=== PATIENT | male | born 1980 | race Two or more races ===

== ENCOUNTER 2017-01-01 23:03 | Inpatient (IN) | payer OTHER ==
[2017-01-02] MEDS ORDERED: FAMOTIDINE 20 MG/50 ML IVPB 20 MG in PREMIX 50 IVPB ONE (00:13)
[2017-01-02] MEDS ORDERED: ONDANSETRON 4 MG/2 ML VIAL IVPUSH STA (00:13)
--- NOTE | 2017-01-02 00:13 | PDOC ---
History of Present Illness - General History Source: Patient Exam Limitations: No Limitations - History of Present Illness Initial Comments: 01/02/17 00:22 The patient is a 36 year old male with significant past medical history of acid reflux and gastric ulcer who presents to the ED with 1 day of diffuse abdominal pain. Patient reports he woke up yesterday morning with diffuse abdominal pain and associated nausea, nonbloody vomiting, and nonbloody/nonbilious diarrhea. He states going to bed in his usual state of health the night prior. He also has complaints of decreased appetite. Patient reports a h/o of gastric ulcer, which he only followed up once and has not followed up since. The patient denies fever, chills, cough, SOB, chest pain, and palpitations. Allergies: NKDA Social History: Current smoker (2 cigarettes daily). No alcohol or drug use reported. Past Surgical History: Appendectomy PCP: None reported <Frances Dewey - Last Filed: 01/02/17 05:44> - General History Source: Patient <VjCarlos A woods - Last Filed: 01/02/17 19:24> - General Chief Complaint: Nausea/Vomiting Stated Complaint: N/V/D Time Seen by Provider: 01/02/17 00:12 Past History <Frances Dewey - Last Filed: 01/02/17 05:44> - Past Medical History GI Disorders: Yes (gastric ulcers) - Surgical History Appendectomy: Yes - Immunization History Immunization Up to Date: Yes - Psycho/Social/Smoking Cessation Hx Anxiety: No Suicidal Ideation: No Smoking History: Never smoked Have you smoked in the past 12 months: No Number of Cigarettes Smoked Daily: 1 If you are a former smoker, when did you quit?: 3 wks Information on smoking cessation initiated: No Hx Alcohol Use: No Drug/Substance Use Hx: No Substance Use Type: None <Carlos A Ireland - Last Filed: 01/02/17 19:24> - Past Medical History Allergies/Adverse Reactions: Allergies Allergy/AdvReac Type Severity Reaction Status Date / Time ibuprofen [From Motrin] AdvReac Vomiting Verified 01/02/17 02:59 Home Medications: Ambulatory Orders NK [No Known Home Medication] 01/02/17 Review of Systems - Review of Systems Able to Perform ROS?: Yes Comments:: 01/02/17 00:22 CONSTITUTIONAL: +decreased appetite Absent: fever, no chills, no fatigue EYES: Absent: visual changes ENT: Absent: ear pain, no sore throat CARDIOVASCULAR: Absent: chest pain, no palpitations RESPIRATORY: Absent: cough, no SOB GI: +abdominal pain, nausea, vomiting, and diarrhea Absent: melena, no constipation GENITOURINARY: Absent: dysuria, no frequency, no hematuria MUSKULOSKELETAL: Absent: back pain, no arthralgia, no myalgia SKIN: Absent: rash NEURO: Absent: headache <Frances Dewey - Last Filed: 01/02/17 05:44> *Physical Exam - Vital Signs Last Vital Signs Temp Pulse Resp BP Pulse Ox 98.5 F 79 18 131/93 97 01/01/17 23:07 01/01/17 23:07 01/01/17 23:07 01/01/17 23:07 01/01/17 23:07 - Physical Exam Comments: 01/02/17 00:22 GENERAL: Well-appearing, well-nourished. No apparent distress. HEENT: Normocephalic, atraumatic. PERRL, EOM intact. CARDIOVASCULAR: Normal S1, S2. Regular rate and rhythm. PULMONARY: Clear to auscultation bilaterally. ABDOMEN: Soft, non-distended, non-tender. No rebound or guarding. EXTREMITIES: Normal ROM in all four extremities. No gross deformities. SKIN: Warm, dry. No rash NEUROLOGICAL: No focal neurological deficits. <Frances Dewey - Last Filed: 01/02/17 05:44> - Vital Signs Last Vital Signs Temp Pulse Resp BP Pulse Ox 98.5 F 79 18 131/93 97 01/01/17 23:07 01/01/17 23:07 01/01/17 23:07 01/01/17 23:07 01/01/17 23:07 <Carlos A Ireland - Last Filed: 01/02/17 19:24> Heart Score/ECG Review - ECG Impressions Comment:: 01/02/17 05:44 NSR @65bpm Normal ECG <Frances Dewey - Last Filed: 01/02/17 05:44> ED Treatment Course - LABORATORY CBC & Chemistry Diagram: 01/02/17 02:42 01/02/17 02:42 - RADIOLOGY Radiograph Interpretation: 01/02/17 04:54 EXAM: CT ABDOMEN AND PELVIS WITH CONTRAST Reviewed by Imaging transportation attendant: Thickened descending duodenum with adjacent hazy fat, probably duodenitis. Irregular contours of proximal duodenum may represent normal folds, although a small ulcer is not excluded. No bowel obstruction, colitis, free fluid or free air. Normal appendix. Unremarkable pancreas, kidneys and gallbladder. <Frances Dewey - Last Filed: 01/02/17 05:44> - LABORATORY CBC & Chemistry Diagram: 01/02/17 02:42 01/02/17 02:42 <Carlos A Ireland - Last Filed: 01/02/17 19:24> Medical Decision Making - Medical Decision Making 01/02/17 19:24 Dr. Ireland: The scribe's documentation has been prepared under my direction and personally reviewed by me in its entirery. I confirm that the note above accurately reflects all work, treatment, procedures, and medical decision making performed by me. <Carlos A Ireland - Last Filed: 01/02/17 19:24> *DC/Admit/Observation/Transfer - Attestations Scribe Attestion: 01/02/17 00:22 Documentation prepared by Frances Dewey, acting as medical record transcriber for Carlos A Ireland MD <Frances Dewey - Last Filed: 01/02/17 05:44> - Discharge Dispostion Admit: Yes <Carlos A Ireland - Last Filed: 01/02/17 19:24> Diagnosis at time of Disposition: Epigastric abdominal pain, GERD (gastroesophageal reflux disease), Elevated lipase, Duodenitis
[2017-01-02] MEDS ORDERED: SODIUM CHLORIDE 1,000 ML IV STA (00:14)
[2017-01-02] MEDS ORDERED: FAMOTIDINE 20 MG/50 ML IVPB 50 ML IVPB ONE (02:48)
[2017-01-02] MEDS ORDERED: ONDANSETRON 4 MG/2 ML VIAL ONE (02:48)
[2017-01-02 03:08] LABS: BASOPHIL 0.9 % (0-2.0); EOSINOPHIL 3.7 % (0-4.5); MCH 28.5 pg (25.7-33.7); MEAN CELL VOLUME 83.9 fl (80-96); MEAN PLT VOLUME 7.8 fl (7.5-11.1); NEUTROPHILS 57.6 % (42.8-82.8); PLATELET COUNT 357 K/MM3 (134-434); WHITE BLOOD COUNT 6.8 K/mm3 (4.0-10.0)
[2017-01-02 03:30] LABS: ALBUMIN 3.7 g/dl (3.4-5.0); ALK PHOS 85 U/L (45-117); AMYLASE 141 U/L (25-115); ANION GAP 9 (8-16); BILIRUBIN,TOTAL 0.7 mg/dL (0.2-1.0); CALCIUM 9.2 mg/dL (8.5-10.1); CO2 29 mmol/L (21-32); CREATININE 0.8 mg/dL (0.7-1.3); GLUCOSE,RANDOM 98 mg/dL (74-106); SGOT/AST 19 U/L (15-37); SGPT/ALT 24 U/L (12-78); TOT PROT 6.8 g/dl (6.4-8.2)
[2017-01-02] MEDS ORDERED: DEXTROSE 5%-0.45% SALINE 1,000 ML IV SCH ×2 (05:00→08:22)
--- NOTE | 2017-01-02 05:06 | HP ---
CHIEF COMPLAINT: Epigastric pain, nausea, vomiting, diarrhea PCP: Not on staff HISTORY OF PRESENT ILLNESS: This is a 36 y/o male with a past medical history of GERD, Gastric Ulcer. Who presents to the emergency department with epigastric pain, bilious vomiting, and diarrhea x 1 day. Patient reports having 3-4 episodes of vomiting with squeezing type pain to his epigastrium. Patient denies eating spicy, greasy or fried. Patient reports subjective fever without chills or cough. Patient denies SOB, CP, hemotchezia, melena, dysuria. ER course was notable for: (1) Lipase 755 (2) Amylase 141 (3) CTAP: Thickened descending duodenum, adjacent hazy fat, probably duodenitis Recent Travel: None PAST MEDICAL HISTORY: GERD Gastric Ulcer PAST SURGICAL HISTORY: Appendectomy Social History: Smoking: None Alcohol: None Drugs: NOne Lives with family, employed Family History: DM, HTN Allergies ibuprofen [From Motrin] Adverse Reaction (Verified 01/02/17 02:59) Vomiting HOME MEDICATIONS: Home Medications Medication Instructions Recorded NK [No Known Home Medication] 01/02/17 REVIEW OF SYSTEMS CONSTITUTIONAL: fever Absent: chills, diaphoresis, generalized weakness, malaise, loss of appetite, weight change HEENT: Absent: rhinorrhea, nasal congestion, throat pain, throat swelling, difficulty swallowing, mouth swelling, ear pain, eye pain, visual changes CARDIOVASCULAR: Absent: chest pain, syncope, palpitations, irregular heart rate, lightheadedness , peripheral edema RESPIRATORY: Absent: cough, shortness of breath, dyspnea with exertion, orthopnea, wheezing, stridor, hemoptysis GASTROINTESTINAL: abdominal pain, nausea, vomiting, diarrhea Absent: abdominal distension, constipation, melena, hematochezia GENITOURINARY: Absent: dysuria, frequency, urgency, hesitancy, hematuria, flank pain, genital pain MUSCULOSKELETAL: Absent: myalgia, arthralgia, joint swelling, back pain, neck pain SKIN: Absent: rash, itching, pallor HEMATOLOGIC/IMMUNOLOGIC: Absent: easy bleeding, easy bruising, lymphadenopathy, frequent infections ENDOCRINE: Absent: unexplained weight gain, unexplained weight loss, heat intolerance, cold intolerance NEUROLOGIC: Absent: headache, focal weakness or paresthesias, dizziness, unsteady gait, seizure, mental status changes, bladder or bowel incontinence PSYCHIATRIC: Absent: anxiety, depression, suicidal or homicidal ideation, hallucinations. PHYSICAL EXAMINATION Vital Signs - 24 hr 01/01/17 01/02/17 23:07 04:43 Temperature 98.5 F 97.9 F Pulse Rate 79 Pulse Rate [ 77 Right] Respiratory 18 16 Rate Blood Pressure 131/93 Blood Pressure 117/77 [Left Arm] O2 Sat by Pulse 97 100 Oximetry (%) GENERAL: Awake, alert, and fully oriented, in no acute distress. HEAD: Normal with no signs of trauma. EYES: Pupils equal, round and reactive to light, extraocular movements intact, sclera anicteric, conjunctiva clear. No lid lag. EARS, NOSE, THROAT: Ears normal, nares patent, oropharynx clear without exudates. Moist mucous membranes. NECK: Normal range of motion, supple without lymphadenopathy, JVD, or masses. LUNGS: Breath sounds equal, clear to auscultation bilaterally. No wheezes, and no crackles. No accessory muscle use. HEART: Regular rate and rhythm, normal S1 and S2 without murmur, rub or gallop. ABDOMEN: Soft, obese, not distended, no guarding, no rebound, no masses. No hepatomegaly or splenomegaly. tender to epigastrium, hyperactive bowel sounds MUSCULOSKELETAL: Normal range of motion at all joints. No bony deformities or tenderness. No CVA tenderness. UPPER EXTREMITIES: 2+ pulses, warm, well-perfused. No cyanosis. No clubbing. No peripheral edema. LOWER EXTREMITIES: 2+ pulses, warm, well-perfused. No calf tenderness. No peripheral edema. NEUROLOGICAL: Cranial nerves II-XII intact. Normal speech. Normal gait. PSYCHIATRIC: Cooperative. Good eye contact. Appropriate mood and affect. SKIN: Warm, dry, normal turgor, no rashes or lesions noted, normal capillary refill. Laboratory Results - last 24 hr 01/02/17 01/02/17 02:42 02:42 WBC 6.8 RBC 5.18 Hgb 14.8 Hct 43.5 MCV 83.9 MCHC 34.0 RDW 13.0 Plt Count 357 MPV 7.8 Neutrophils % 57.6 Lymphocytes % 30.3 Monocytes % 7.5 Eosinophils % 3.7 Basophils % 0.9 Sodium 142 Potassium 4.4 Chloride 104 Carbon Dioxide 29 Anion Gap 9 BUN 17 Creatinine 0.8 Creat Clearance w eGFR > 60 Random Glucose 98 Calcium 9.2 Magnesium 2.0 Total Bilirubin 0.7 D AST 19 ALT 24 Alkaline Phosphatase 85 Total Protein 6.8 Albumin 3.7 Total Amylase 141 H Lipase 755 H - RADIOLOGY Radiograph Interpretation: 01/02/17 04:54 EXAM: CT ABDOMEN AND PELVIS WITH CONTRAST Reviewed by Imaging trousseau consultant: Thickened descending duodenum with adjacent hazy fat, probably duodenitis. Irregular contours of proximal duodenum may represent normal folds, although a small ulcer is not excluded. No bowel obstruction, colitis, free fluid or free air. Normal appendix. Unremarkable pancreas, kidneys and gallbladder. ASSESSMENT/PLAN: This is a 36 y/o male with a PMHX of: GERD, Gastric Ulcer. Who presents to the ED with epigastric pain, N/V/D. Placed in Observation for Undifferentiated Abdominal Pain for further evaluation of their emergent condition. Plan: 1. Epigastric Pain/ Nausea/Vomiting/Diarrhea - Hx GERD, Gastric Ulcer - CTAP- see above - IVF, Pepcid, Zofran given in ED - Continue IVF, Pepcid - NPO- advance to clear as tolerated - Lipase and Amylase elevated likely secondary to inflammatory response - Monitor CBC, BMP - Replete lytes as indicated - Monitor vitals - Consider GI Consult if condition worsens - Stool Occult in am 2. GERD - Continue H2 Elijah - IVF 3. Gastric Ulcer - f/u outpatient with GI upon d/c 4. FEN - D51/2 NS@100ml/hr - Replete lytes prn - NPO 5. DVT Prophylaxis - OOB - SCDs Code Status: Full Code Problem List - Problem (1) Epigastric abdominal pain Code(s): R10.13 - EPIGASTRIC PAIN (2) Duodenitis Code(s): K29.80 - DUODENITIS WITHOUT BLEEDING (3) Elevated lipase Code(s): R74.8 - ABNORMAL LEVELS OF OTHER SERUM ENZYMES (4) GERD (gastroesophageal reflux disease) Code(s): K21.9 - GASTRO-ESOPHAGEAL REFLUX DISEASE WITHOUT ESOPHAGITIS (5) DVT prophylaxis Code(s): YCD7319 - Visit type - Emergency Visit Emergency Visit: Yes ED Registration Date: 01/01/17 Care time: The patient presented to the Emergency Department on the above date and was hospitalized for further evaluation of their emergent condition. - New Patient This patient is new to me today: Yes Date on this admission: 01/02/17 - Critical Care Critical Care patient: No
[2017-01-02] MEDS ORDERED: ONDANSETRON 4 MG/2 ML VIAL IVPUSH PRN (05:15)
--- NOTE | 2017-01-02 08:31 | PN ---
Physical Exam: SUBJECTIVE: Patient seen and examined at bedside. Feels better, only mild epigastric pain which is his baseline. No further n/v/d. Wants to go home. Sister encouraging him to stay. OBJECTIVE: Vital Signs Period Temp Pulse Resp BP Sys/Elaine Pulse Ox Last 24 Hr 97.6 F 70 18 105/83 96 GENERAL: The patient is awake, alert, and fully oriented, in no acute distress. HEAD: Normal with no signs of trauma. EYES: PERRL, extraocular movements intact, sclera anicteric, conjunctiva clear. No ptosis. LUNGS: Breath sounds equal, clear to auscultation bilaterally, no wheezes, no crackles, no accessory muscle use. HEART: Regular rate and rhythm, S1, S2 without murmur, rub or gallop. ABDOMEN: Soft, nontender, nondistended, normoactive bowel sounds, no guarding, no rebound; benign exam NEUROLOGICAL: Cranial nerves II through XII grossly intact. Normal speech, gait not observed. Current Medications Generic Name Dose Route Start Last Admin Trade Name Freq PRN Reason Stop Dose Admin Enoxaparin Sodium 40 mg 01/03/17 10:00 Lovenox - SQ DAILY GWEN Famotidine/Sodium Chloride 50 mls @ 100 mls/hr 01/02/17 22:00 Pepcid 20 Mg Premixed Ivpb - IVPB BID GWEN Sodium Chloride 1,000 mls @ 200 mls/hr 01/02/17 15:15 Normal Saline - IV ASDIR GWEN Pantoprazole Sodium 40 mg/ 100 mls @ 200 mls/hr 01/02/17 22:00 Sodium Chloride IVPB BID GWEN Ondansetron HCl 4 mg 01/02/17 05:15 Zofran Injection IVPUSH Q6H PRN NAUSEA AND/OR VOMITING Imaging 01/02/17 CTAP: thickened descending duodenum with adjacent haziness of fat at level of pancreatic head; small ulcer cannot be ruled out 01/20/16 US gallbladder: negative for acute pathology; mild diffuse fatty liver ASSESSMENT/PLAN 36 year-old male with a PMH of GERD and gastric ulcer, admitted for duodentitis and pancreatitis, possible new duodenal ulcer Pancreatitis --imaging findings suggestive of pancreatic inflammation, acute onset of severe pain, n/v, and elevated lipase --Paia's criteria 0-1 --repeat lipase in am to see if trending up; check crp, LDH --IV fluids --NPO --GI consult for Dr. Bates who has seen patient in past in office Duodenitis r/o duodenal ulcer GERD --Protonix IVPB BID F/E/N Fluids: NS @ 200mL/hr Electrolytes: replete as indicated Nutrition: NPO DVT prophylaxis: lovenox, oob, ambulation Dispo: continues to require inpatient care. Full Code. Visit type - Emergency Visit Emergency Visit: Yes ED Registration Date: 01/02/17 Care time: The patient presented to the Emergency Department on the above date and was hospitalized for further evaluation of their emergent condition. - New Patient This patient is new to me today: Yes Date on this admission: 01/02/17 - Critical Care Critical Care patient: No
--- NOTE | 2017-01-02 11:52 | EKG ---
Test Reason : Blood Pressure : / mmHG Vent. Rate : 065 BPM Atrial Rate : 065 BPM P-R Int : 186 ms QRS Dur : 080 ms QT Int : 378 ms P-R-T Axes : 051 012 033 degrees QTc Int : 393 ms NORMAL SINUS RHYTHM NORMAL ECG NO PREVIOUS ECGS AVAILABLE Confirmed by JANA MATHIS MD ([id number]) on 01/02/2017 11:52:02 AM Referred By: Confirmed By:JANA MATHIS MD
--- NOTE | 2017-01-02 14:38 | HOSP ---
Subjective - Review of Symptoms Events since last encounter: Determined patient has been seen in past by Dr. Bates. Called consult into his office at 2:40pm.. Called and spoke to 's office and cancelled the previous consult order for his group. Physical Examination Vital Signs: Vital Signs Temperature 98.1 F 01/02/17 11:00 Pulse Rate 68 01/02/17 11:00 Respiratory Rate 19 01/02/17 11:00 Blood Pressure 114/62 01/02/17 11:00 O2 Sat by Pulse Oximetry (%) 96 01/02/17 11:00
[2017-01-02 17:58] VITALS: BMI 32.1
[2017-01-02] MEDS: SODIUM CHLORIDE 1,000 ML IV SCH (18:27)
--- NOTE | 2017-01-02 19:46 | CON.GI ---
Consult Consult Specialty:: GI Referred by:: Dr Mariscal Reason for Consultation:: Abdominal pain - History of Present Illness Chief Complaint: N/V/diarrhea History of Present Illness: Patient describes a 1 day h/o N/V/D admitted and found to have mild elevated lipase and a CT demonstrating duodenitis with haziness in the surrounding fat at the level of the pancreatic head. I have seen this patient in the past and did EGD recently which showed duodenitis. Patient was supposed to follow-up but failed to show. - History Source History Provided By: Patient, Family Member, Medical Record Limitations to Obtaining History: No Limitations - Past Medical History Gastrointestinal: Yes: Gastritis - Alcohol/Substance Use Hx Alcohol Use: No - Smoking History Smoking history: Never smoked Have you smoked in the past 12 months: No Aproximately how many cigarettes per day: 1 If you are a former smoker, when did you quit?: 3 wks Home Medications - Allergies Allergies/Adverse Reactions: Allergies Allergy/AdvReac Type Severity Reaction Status Date / Time ibuprofen [From Motrin] AdvReac Vomiting Verified 01/02/17 02:59 - Home Medications Home Medications: Ambulatory Orders NK [No Known Home Medication] 01/02/17 Physical Exam-GI Vital Signs: Vital Signs Temperature 98.3 F 01/02/17 18:43 Pulse Rate 18 L 01/02/17 18:43 Respiratory Rate 68 H 01/02/17 18:43 Blood Pressure 113/68 01/02/17 18:43 O2 Sat by Pulse Oximetry (%) 99 01/02/17 17:15 Constitutional: Yes: Well Nourished, No Distress Respiratory: Yes: CTA Bilaterally Gastrointestinal Inspection: Yes: WNL ...Auscultate: Yes: Normoactive Bowel Sounds ...Palpate: Yes: Soft, Tenderness, Epigastium (mild) Labs: CBC, BMP 01/02/17 02:42 01/02/17 02:42 Hepatic Panel Total Bilirubin 0.7 mg/dL (0.2-1.0) D 01/02/17 02:42 AST 19 U/L (15-37) 01/02/17 02:42 ALT 24 U/L (12-78) 01/02/17 02:42 Alkaline Phosphatase 85 U/L (45-117) 01/02/17 02:42 Albumin 3.7 g/dl (3.4-5.0) 01/02/17 02:42 Abnormal Lab Results 01/02/17 02:42 Total Amylase 141 H Lipase 755 H Imaging - Results Cat Scan: Report Reviewed (duodenitis) Assessment/Plan 36 M with h/o peptic duodenitis on biopsy from recent EGD Elevated lipase may be intestinal origin or pancreatic secondary to peripancreatic inflammation. 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 Start liquids and advance to full liquid diet tomorrow Cont PPI as opt Will follow as opt-pat advised to keep appt
[2017-01-02] MEDS ORDERED: FAMOTIDINE 20 MG/50 ML IVPB 50 ML IVPB SCH (22:00)
[2017-01-02] MEDS: PANTOPRAZOLE SODIUM 100 ML IVPB SCH (22:08)
[2017-01-03] MEDS: SODIUM CHLORIDE 1,000 ML IV SCH ×4 (00:48→21:17)
[2017-01-03 07:17] LABS: BASOPHIL 1.1 % (0-2.0); EOSINOPHIL 3.1 % (0-4.5); MCHC 33.3 g/dl (32.0-35.9); MEAN PLT VOLUME 7.9 fl (7.5-11.1); NEUTROPHILS 55.4 % (42.8-82.8); PLATELET COUNT 299 K/MM3 (134-434); RDW 13.1 % (11.9-15.9); WHITE BLOOD COUNT 8.1 K/mm3 (4.0-10.0)
[2017-01-03 07:51] LABS: CALCIUM 7.6 mg/dL (8.5-10.1)
[2017-01-03 07:52] LABS: CREATININE 0.7 mg/dL (0.7-1.3)
[2017-01-03] MEDS: ENOXAPARIN NA (PORCINE) 40 MG/0.4 ML DISP.SYRIN SQ SCH (09:57)
[2017-01-03] MEDS: PANTOPRAZOLE SODIUM 100 ML IVPB SCH ×2 (09:57→21:17)
--- NOTE | 2017-01-03 15:14 | PN ---
Physical Exam: SUBJECTIVE: Patient seen and examined at bedside. Has felt mild discomfort after clears/full liquids today. Feels like "bubbles" in stomach. OBJECTIVE: Vital Signs Period Temp Pulse Resp BP Sys/Elaine Pulse Ox Last 24 Hr 97.7 F-98.3 F 18-86 16-68 91-142/56-77 99-99 GENERAL: The patient is awake, alert, and fully oriented, in no acute distress. HEAD: Normal with no signs of trauma. EYES: PERRL, extraocular movements intact, sclera anicteric, conjunctiva clear. No ptosis. LUNGS: Breath sounds equal, clear to auscultation bilaterally, no wheezes, no crackles, no accessory muscle use. HEART: Regular rate and rhythm, S1, S2 without murmur, rub or gallop. ABDOMEN: Mild epigastric tenderness, hyperactive bowel sounds EXTREMITIES: 2+ pulses, warm, well-perfused, no edema. NEUROLOGICAL: Cranial nerves II through XII grossly intact. Normal speech, moving all extremities freely Laboratory Results - last 24 hr 01/02/17 01/03/17 01/03/17 20:00 05:50 05:50 WBC 8.1 RBC 4.79 Hgb 13.4 Hct 40.3 MCV 84.0 MCHC 33.3 RDW 13.1 Plt Count 299 MPV 7.9 Neutrophils % 55.4 Lymphocytes % 32.8 Monocytes % 7.6 Eosinophils % 3.1 Basophils % 1.1 Sodium 143 Potassium 4.4 Chloride 110 H Carbon Dioxide 26 Anion Gap 7 L BUN 11 D Creatinine 0.7 Random Glucose 84 Calcium 7.6 L LD Total Triglycerides 68 Cholesterol 138 Total LDL Cholesterol 98 HDL Cholesterol 35 L Lipase 519 H Stool Occult Blood Negative 01/03/17 01/03/17 05:50 06:05 WBC RBC Hgb Hct MCV MCHC RDW Plt Count MPV Neutrophils % Lymphocytes % Monocytes % Eosinophils % Basophils % Sodium Potassium Chloride Carbon Dioxide Anion Gap BUN Creatinine Random Glucose Calcium LD Total Cancelled Triglycerides Cancelled Cholesterol Cancelled Total LDL Cholesterol Cancelled HDL Cholesterol Cancelled Lipase Cancelled Stool Occult Blood Active Medications Generic Name Dose Route Start Last Admin Trade Name Freq PRN Reason Stop Dose Admin Enoxaparin Sodium 40 mg 01/03/17 10:00 01/03/17 09:57 Lovenox - SQ 40 mg DAILY GWEN Administration Sodium Chloride 1,000 mls @ 200 mls/hr 01/02/17 15:15 01/03/17 14:47 Normal Saline - IV 200 mls/hr ASDIR GWEN Administration Pantoprazole Sodium 100 mls @ 200 mls/hr 01/02/17 22:00 01/03/17 09:57 Protonix 40mg Ivpb (Pre-Docked) IVPB 200 mls/hr BID GWEN Administration Ondansetron HCl 4 mg 01/02/17 05:15 Zofran Injection IVPUSH Q6H PRN NAUSEA AND/OR VOMITING Imaging 01/02/17 CTAP: thickened descending duodenum with adjacent haziness of fat at level of pancreatic head; small ulcer cannot be ruled out 01/20/16 US gallbladder: negative for acute pathology; mild diffuse fatty liver ASSESSMENT/PLAN 36 year-old male with a PMH of GERD and gastric ulcer, admitted for duodentitis and pancreatitis, possible new duodenal ulcer Pancreatitis --imaging findings suggestive of pancreatic inflammation, acute onset of severe pain, n/v, and elevated lipase --Northfield's criteria 0-1 --lipase trending down --did not tolerate full liquids; will scale back to clears tonight and observe --continue aggressive hydration --GI following Duodenitis r/o duodenal ulcer GERD --Protonix IVPB BID F/E/N Fluids: NS @ 200mL/hr Electrolytes: replete as indicated Nutrition: clears DVT prophylaxis: lovenox, oob, ambulation Dispo: continues to require inpatient care. Full Code. Visit type - Emergency Visit Emergency Visit: Yes ED Registration Date: 01/02/17 Care time: The patient presented to the Emergency Department on the above date and was hospitalized for further evaluation of their emergent condition. - New Patient This patient is new to me today: No - Critical Care Critical Care patient: No
[2017-01-04] MEDS: SODIUM CHLORIDE 1,000 ML IV SCH ×3 (02:38→15:22)
[2017-01-04] MEDS ORDERED: SIMETHICONE 80 MG TAB.CHEW (FP) PO ONE (05:06)
[2017-01-04 08:57] LABS: BASOPHIL 0.7 % (0-2.0); MCH 28.4 pg (25.7-33.7); MCHC 33.5 g/dl (32.0-35.9); MEAN CELL VOLUME 84.6 fl (80-96); MEAN PLT VOLUME 8.1 fl (7.5-11.1); NEUTROPHILS 64.7 % (42.8-82.8); PLATELET COUNT 290 K/MM3 (134-434); RDW 12.9 % (11.9-15.9); WHITE BLOOD COUNT 6.9 K/mm3 (4.0-10.0)
[2017-01-04 09:08] LABS: ALBUMIN 3.1 g/dl (3.4-5.0); ALK PHOS 71 U/L (45-117); ANION GAP 5 (8-16); BILIRUBIN,TOTAL 0.6 mg/dL (0.2-1.0); CALCIUM 8.3 mg/dL (8.5-10.1); CO2 28 mmol/L (21-32); CREATININE 0.7 mg/dL (0.7-1.3); GLUCOSE,RANDOM 82 mg/dL (74-106); MAGNESIUM 1.7 mg/dL (1.8-2.4); SGOT/AST 12 U/L (15-37); SGPT/ALT 19 U/L (12-78); TOT PROT 5.8 g/dl (6.4-8.2)
[2017-01-04] MEDS: PANTOPRAZOLE SODIUM 100 ML IVPB SCH (10:42)
[2017-01-04] MEDS: ENOXAPARIN NA (PORCINE) 40 MG/0.4 ML DISP.SYRIN SQ SCH (10:42)
[2017-01-04 13:29] VITALS: BP 114/70; PULSE 68; TEMP 98.7
[2017-01-04] MEDS ORDERED: MAGNESIUM OXIDE 400 MG TABLET (FP) PO ONE (14:05)
== END 2017-01-04 15:38 | disposition home or self-care (01) | DRG 241 ==
LOC: JER 23:03 → JERBED 01-02 06:26 → J5S 01-02 17:30 → OBSVTOIN 01-03 16:34
PROVIDERS: ADMIT Internal Medicine; ATTEND Nurse Practitioner Acute Care
DX: K29.80 Duodenitis without bleeding (principal); K21.9 Gastro-esophageal reflux disease without esophagitis; K25.9 Gastric ulcer, unspecified as acute or chronic, without hemorrhage or perforation; R79.89 Other specified abnormal findings of blood chemistry
CPT/HCPCS: 36415; 71010-TC; 74177-TC; 80048; 80053; 80061; 82150; 82272; 83690; 83721; 83735; 85025; 86140; 87324; 87449; 93005; 93010; 99285-25; G0378

== ENCOUNTER 2018-05-12 15:11 | Emergency (ER) | payer OTHER ==
[2018-05-12 15:28] VITALS: BP 96/54; PULSE 102; TEMP 98.8; BMI 31.7
[2018-05-12] MEDS ORDERED: ONDANSETRON *ODT* 4 MG TABLET SL ONE (16:02)
--- NOTE | 2018-05-12 16:07 | PDOC ---
History of Present Illness - General Chief Complaint: Sore Throat Stated Complaint: ABD PAIN,VOMITING,FEVER,SORE THROAT Time Seen by Provider: 05/12/18 15:55 History Source: Patient Exam Limitations: No Limitations - History of Present Illness Initial Comments: 05/12/18 17:24 38 yr male c/o sore throat fever vomit x1 today no diarrhea. no sick contacts or travel denies drug use no ETOH use no alcohol use. Severity: Yes: mild Past History - Past History Allergies/Adverse Reactions: Allergies ibuprofen [From Motrin] Adverse Reaction (Verified 05/12/18 15:28) Vomiting Home Medications: Ambulatory Orders Esomeprazole Magnesium 40 mg PO DAILY #30 capsule. 01/04/17 Amoxicillin - [Amoxicillin 500mg Capsule -] 500 mg PO BID #20 capsule 05/12/18 General Medical History: Yes: other (GERD) Immunization Status Up to Date: Yes Tetanus Status: Less than 5 years - Social History Smoking Status: Never smoked Number of Cigarettes Smoked Per Day: 6 Review of Systems - Review of Systems Able to Perform ROS?: Yes Is the patient limited Turkish proficient: No Constitutional: Yes: Symptoms Reported, Fever HEENTM: Yes: Throat Pain *Physical Exam - Vital Signs Last Vital Signs Temp Pulse Resp BP Pulse Ox 98.8 F 102 H 20 96/54 99 05/12/18 15:25 05/12/18 15:25 05/12/18 15:25 05/12/18 15:25 05/12/18 15:25 - Physical Exam General Appearance: Yes: Nourished, Appropriately Dressed, Other (ill appearing) HEENT: positive: EOMI, BONILLA, Pharyngeal Erythema, Tonsillar Erythema, Other ( beefy red throat) Neck: positive: Lymphadenopathy (R) Respiratory/Chest: positive: Lungs Clear, Normal Breath Sounds Cardiovascular: positive: Regular Rhythm, Regular Rate Gastrointestinal/Abdominal: positive: Soft. negative: Tender Musculoskeletal: positive: Normal Inspection Extremity: positive: Normal Capillary Refill, Normal Inspection, Normal Range of Motion Integumentary: positive: Normal Color, Dry, Warm Neurologic: positive: Fully Oriented, Alert, Normal Mood/Affect, Normal Response , Motor Strength 5/5 Medical Decision Making - Medical Decision Making 05/12/18 16:29 cc: fever, sore throat , vomiting x2 started yesterday no diarrhea no abd pain at present feels nausea will check for strep IVF, decadron, pepcid 05/12/18 17:26 pos strep pt feeling better after meds 05/12/18 18:40 BP 120/67 HR 76 pulse ox 100 temp 98.4 *DC/Admit/Observation/Transfer Diagnosis at time of Disposition: Strep pharyngitis - Discharge Dispostion Disposition: HOME - Prescriptions Prescriptions: Amoxicillin - [Amoxicillin 500mg Capsule -] 500 mg PO BID #20 capsule - Referrals - Patient Instructions Additional Instructions: drink pleanty of fluids , ice pops, jello, ice cream take the antibiotic as directed for 10 days continue to take tylenol 650mg every 4-6hrs for pain or fever follow with your doctor in 2-3 days - Post Discharge Activity
[2018-05-12] MEDS ORDERED: ONDANSETRON *ODT* 4 MG TABLET ONE (16:11)
[2018-05-12] MEDS ORDERED: FAMOTIDINE 20 MG/50 ML IVPB 20 MG/50 ML MG IVPB ONE ×2 (16:26→16:43)
[2018-05-12] MEDS ORDERED: SODIUM CHLORIDE 1,000 ML IV STA (16:26)
[2018-05-12] MEDS ORDERED: DEXAMETHASONE SOD PHOSPHATE 20 MG/5 ML VIAL IVPB ONE (16:29)
[2018-05-12] MEDS ORDERED: DEXAMETHASONE SOD PHOSPHATE 10 MG/1 ML VIAL ONE (16:43)
[2018-05-12] MEDS ORDERED: ACETAMINOPHEN 325 MG TABLET (FP) PO ONE (17:26)
[2018-05-12] MEDS ORDERED: ACETAMINOPHEN 325 MG TABLET (FP) ONE (17:27)
== END 2018-05-12 18:52 | disposition home or self-care (01) ==
LOC: JERFT 15:11
PROC: 3E0337Z Introduction of Electrolytic and Water Balance Substance into Peripheral Vein, Percutaneous Approach (ICD-10-PCS; principal; 2018-05-12)
PROC: 3E033GC Introduction of Other Therapeutic Substance into Peripheral Vein, Percutaneous Approach (ICD-10-PCS; 2018-05-12)
PROC: 3E0333Z Introduction of Anti-inflammatory into Peripheral Vein, Percutaneous Approach (ICD-10-PCS; 2018-05-12)
DX: J02.0 Streptococcal pharyngitis (principal); B95.0 Streptococcus, group A, as the cause of diseases classified elsewhere
CPT/HCPCS: 87070; 87077; 87430; 96361; 96365; 96375; 99281-25; J7030; Q0162

== ENCOUNTER 2018-10-20 23:52 | Emergency (ER) | payer OTHER ==
[2018-10-21 01:51] VITALS: BMI 31.0
--- NOTE | 2018-10-21 02:24 | PDOC ---
History of Present Illness - General Chief Complaint: Pain Stated Complaint: ABDOMINAL PAIN Time Seen by Provider: 10/21/18 02:24 - History of Present Illness Initial Comments: 10/21/18 02:25 Mr. Andrade is a 38 yo male w/ pmh of acid reflux and gastric ulcer who presents for evaluation of 1 week history of epigastric pain with 1 instance of yellow vomit today. Patient reports this is typical of his gastric pain. Patient denies any other associated symptoms. The patient denies chest pain, shortness of breath, headache and dizziness. Denies fever, chills, diarrhea and constipation. Denies dysuria, frequency, urgency and hematuria. Past History - Past Medical History Allergies/Adverse Reactions: Allergies Allergy/AdvReac Type Severity Reaction Status Date / Time ibuprofen [From Motrin] AdvReac Vomiting Verified 05/12/18 15:28 Home Medications: Ambulatory Orders NK [No Known Home Medication] 10/21/18 COPD: No GI Disorders: Yes (gastric ulcers) - Surgical History Appendectomy: Yes - Immunization History Immunization Up to Date: Yes - Suicide/Smoking/Psychosocial Hx Smoking History: Never smoked Have you smoked in the past 12 months: No Number of Cigarettes Smoked Daily: 6 If you are a former smoker, when did you quit?: 3 wks 'Breaking Loose' booklet given: 01/02/17 Hx Alcohol Use: No Drug/Substance Use Hx: No Substance Use Type: None Review of Systems - Review of Systems Comments:: 10/21/18 02:35 GENERAL/CONSTITUTIONAL: No fever or chills. No weakness. HEAD, EYES, EARS, NOSE AND THROAT: No change in vision. No ear pain or discharge. No sore throat. CARDIOVASCULAR: No chest pain or shortness of breath RESPIRATORY: No cough, wheezing, or hemoptysis. GASTROINTESTINAL: +N/V w/ epigastric pain as described. No diarrhea or constipation. GENITOURINARY: No dysuria, frequency, or change in urination. MUSCULOSKELETAL: No joint or muscle swelling or pain. No neck or back pain. SKIN: No rash NEUROLOGIC: No headache, vertigo, loss of consciousness, or change in strength/ sensation. ENDOCRINE: No increased thirst. No abnormal weight change HEMATOLOGIC/LYMPHATIC: No anemia, easy bleeding, or history of blood clots. ALLERGIC/IMMUNOLOGIC: No hives or skin allergy. *Physical Exam - Vital Signs Last Vital Signs Temp Pulse Resp BP Pulse Ox 98.6 F 88 19 109/79 100 10/20/18 23:55 10/20/18 23:55 10/20/18 23:55 10/20/18 23:55 10/20/18 23:55 - Physical Exam Comments: 10/21/18 02:36 GENERAL: Awake, alert, and fully oriented, in no acute distress HEAD: No signs of trauma, normocephalic, atraumatic EYES: PERRLA, EOMI, sclera anicteric, conjunctiva clear ENT: Auricles normal inspection, hearing grossly normal, nares patent, oropharynx clear without exudates. Moist mucosa NECK: Normal ROM, supple, no lymphadenopathy, JVD, or masses LUNGS: No distress, speaks full sentences, clear to auscultation bilaterally HEART: Regular rate and rhythm, normal S1 and S2, no murmurs, rubs or gallops, peripheral pulses normal and equal bilaterally. ABDOMEN: +Midline and RUQ TTP. Soft, normoactive bowel sounds. No guarding, no rebound. No masses EXTREMITIES: Normal inspection, Normal range of motion, no edema. No clubbing or cyanosis. NEUROLOGICAL: Cranial nerves II through XII grossly intact. Normal speech, normal gait, no focal sensorimotor deficits SKIN: Warm, Dry, normal turgor, no rashes or lesions noted. Moderate Sedation - Procedure Monitoring Vital Signs: Procedure Monitoring Vital Signs Temperature 98.6 F 10/20/18 23:55 Pulse Rate 88 10/20/18 23:55 Respiratory Rate 19 10/20/18 23:55 Blood Pressure 109/79 10/20/18 23:55 O2 Sat by Pulse Oximetry (%) 100 10/20/18 23:55 ED Treatment Course - LABORATORY CBC & Chemistry Diagram: 10/21/18 03:02 10/21/18 03:02 Medical Decision Making - Medical Decision Making 10/21/18 03:36 Mr. Andrade is a 38 yo male w/ pmh as described who presents for evaluation of epigastric pain similar to previous gastritis episodes. Workup begun with labs to r/o infectious vs. electrolyte vs. alternate process as below. Labs grossly wnl. CXR negative. Strict return precautions discussed. Patient symptoms improved with GI cocktail. Discharging to home. Laboratory Results - last 24 hr 10/21/18 10/21/18 03:02 03:02 WBC 10.0 RBC 5.16 Hgb 15.0 Hct 43.1 MCV 83.6 MCH 29.2 MCHC 34.9 RDW 13.1 Plt Count 411 D MPV 7.4 L Absolute Neuts (auto) 5.5 Neutrophils % 54.9 Lymphocytes % 34.2 D Monocytes % 8.2 Eosinophils % 1.8 Basophils % 0.9 Nucleated RBC % 0 Sodium 139 Potassium 4.6 Chloride 105 Carbon Dioxide 29 Anion Gap 5 L BUN 17 Creatinine 0.8 Creat Clearance w eGFR > 60 Random Glucose 89 Calcium 9.0 Total Bilirubin 0.4 AST 18 ALT 24 Alkaline Phosphatase 107 Total Protein 6.9 Albumin 3.4 Lipase 149 *DC/Admit/Observation/Transfer Diagnosis at time of Disposition: Epigastric abdominal pain - Discharge Dispostion Disposition: HOME - Referrals - Patient Instructions Printed Discharge Instructions: DI for Gastroesophageal Reflux Disease (GERD) Additional Instructions: You were evaluated today in the ER for your abdominal pain. No concerning findings were found at this time and your pain improved with gastritis medications. Please follow-up as soon as possible with GI doctor for further evaluation. Return to ER if any fever, chills, increased pain, or other concerning symptoms. - Post Discharge Activity
[2018-10-21] MEDS ORDERED: FAMOTIDINE 20 MG/50 ML IVPB 20 MG/50 ML MG IVPB ONE ×2 (02:29→03:08)
[2018-10-21] MEDS ORDERED: SODIUM CHLORIDE 1,000 ML IV STA (02:29)
[2018-10-21] MEDS ORDERED: MAG HYDROX/AL HYDROX/SIMETH 30 ML UNIT-DOSE CUP PO ONE ×2 (02:29→04:05)
[2018-10-21] MEDS ORDERED: ONDANSETRON 4 MG/2 ML VIAL IVPUSH ONE (02:30)
--- NOTE | 2018-10-21 02:50 | PDOC ---
Attending Attestation - Resident Resident Name: Everett Verduzco - ED Attending Attestation I have performed the following: I have examined & evaluated the patient, The case was reviewed & discussed with the resident, I agree w/resident's findings & plan - HPI HPI: 10/21/18 03:18 Pt comes with epigastric pain and possible RUQ biliary colic. - Physicial Exam PE: 10/21/18 03:41 Agree with resident exam. RUQ pain secondary to poor diet with fatty junk food. Pt is afebrile. Exam normal; no rebound and no guarding. 10/21/18 03:42 - Medical Decision Making 10/21/18 03:42 Normal EKG and normal labs.
[2018-10-21] MEDS ORDERED: MAG HYDROX/AL HYDROX/SIMETH 30 ML UNIT-DOSE CUP ONE (03:07)
[2018-10-21] MEDS ORDERED: ONDANSETRON 4 MG/2 ML VIAL ONE (03:07)
[2018-10-21 03:10] LABS: BASO % 0.9 % (0-2.0); EOS % 1.8 % (0-4.5); HEMATOCRIT 43.1 % (35.4-49); LYMPH % 34.2 % (8-40); MCH 29.2 pg (25.7-33.7); MCHC 34.9 g/dl (32.0-35.9); MEAN CELL VOLUME 83.6 fl (80-96); MEAN PLT VOLUME 7.4 fl (7.5-11.1); MONO % 8.2 % (3.8-10.2); NEUT % 54.9 % (42.8-82.8); PLATELET COUNT 411 K/MM3 (134-434); RBC 5.16 M/mm3 (4.00-5.60); RDW 13.1 % (11.9-15.9)
[2018-10-21 03:30] LABS: ALBUMIN 3.4 g/dl (3.4-5.0); ALK PHOS 107 U/L (45-117); ANION GAP 5 MMOL/L (8-16); BILIRUBIN,TOTAL 0.4 mg/dL (0.2-1); BLOOD UREA NITROGEN 17 mg/dL (7-18); CHLORIDE 105 mmol/L (98-107); CO2 29 mmol/L (21-32); CREATININE 0.8 mg/dL (0.55-1.3); GLUCOSE,RANDOM 89 mg/dL (74-106); LIPASE 149 U/L (73-393); POTASSIUM 4.6 mmol/L (3.5-5.1); SGOT/AST 18 U/L (15-37); SGPT/ALT 24 U/L (13-61); SODIUM 139 mmol/L (136-145); TOT PROT 6.9 g/dl (6.4-8.2)
[2018-10-21] MEDS ORDERED: LIDOCAINE VISCOUS 2% ORAL/TOP 20 ML UNIT-DOSE CUP MM ONE (04:05)
[2018-10-21] MEDS ORDERED: LIDOCAINE VISCOUS 2% ORAL/TOP 20 ML UNIT-DOSE CUP ONE (04:08)
[2018-10-21 04:43] VITALS: BP 110/78; PULSE 89; TEMP 98
--- NOTE | 2018-10-21 09:37 | EKG ---
Test Reason : Blood Pressure : / mmHG Vent. Rate : 078 BPM Atrial Rate : 078 BPM P-R Int : 168 ms QRS Dur : 086 ms QT Int : 364 ms P-R-T Axes : 035 005 028 degrees QTc Int : 414 ms NORMAL SINUS RHYTHM NORMAL ECG WHEN COMPARED WITH ECG OF 02-JAN-2017 05:39, NO SIGNIFICANT CHANGE WAS FOUND Confirmed by JANA MATHIS MD ([id number]) on 10/21/2018 9:37:10 AM Referred By: Confirmed By:JANA MATHIS MD
== END 2018-10-21 04:43 | disposition home or self-care (01) ==
LOC: JER 23:52
PROC: 3E033GC Introduction of Other Therapeutic Substance into Peripheral Vein, Percutaneous Approach (ICD-10-PCS; principal; 2018-10-20)
PROC: 3E0337Z Introduction of Electrolytic and Water Balance Substance into Peripheral Vein, Percutaneous Approach (ICD-10-PCS; 2018-10-20)
DX: R10.13 Epigastric pain (principal)
CPT/HCPCS: 36415; 71046-TC-FY; 80053; 83690; 85025; 93005; 93010; 99282-25; J7030

== ENCOUNTER 2018-10-21 20:41 | Emergency (ER) | payer OTHER ==
[2018-10-21 20:48] VITALS: BP 111/75; PULSE 96; TEMP 98.1; BMI 30.9
[2018-10-21] MEDS ORDERED: ONDANSETRON 4 MG/2 ML VIAL IVPUSH ONE (21:21)
[2018-10-21] MEDS ORDERED: MAG HYDROX/AL HYDROX/SIMETH 30 ML UNIT-DOSE CUP PO ONE (21:21)
[2018-10-21] MEDS ORDERED: SODIUM CHLORIDE 1,000 ML IV STA (21:21)
[2018-10-21] MEDS ORDERED: LIDOCAINE VISCOUS 2% ORAL/TOP 20 ML UNIT-DOSE CUP MM ONE (21:21)
[2018-10-21] MEDS ORDERED: FAMOTIDINE 20 MG/50 ML IVPB 20 MG/50 ML MG IVPB ONE ×3 (21:21→23:08)
--- NOTE | 2018-10-21 21:24 | PDOC ---
History of Present Illness - General Chief Complaint: Pain Stated Complaint: ABD PAIN - History of Present Illness Initial Comments: 10/21/18 21:22 Mr. Andrade is a 38 yo male w/ pmh of acid reflux and gastric ulcer, recently evaluated yesterday for same symptoms of 1 week of epigastric pain with nausea and vomiting. Patient is back as pain has continued and he was advised at urgent care center to represent. The patient denies chest pain, shortness of breath, headache and dizziness. Denies fever, chills, diarrhea and constipation. Denies dysuria, frequency, urgency and hematuria. Past History - Past Medical History Allergies/Adverse Reactions: Allergies Allergy/AdvReac Type Severity Reaction Status Date / Time ibuprofen [From Motrin] AdvReac Vomiting Verified 10/21/18 20:45 Home Medications: Ambulatory Orders NK [No Known Home Medication] 10/21/18 COPD: No GI Disorders: Yes (gastric ulcers) - Surgical History Appendectomy: Yes - Immunization History Immunization Up to Date: Yes - Suicide/Smoking/Psychosocial Hx Smoking History: Current every day smoker Have you smoked in the past 12 months: No Number of Cigarettes Smoked Daily: 4 If you are a former smoker, when did you quit?: 3 wks Information on smoking cessation initiated: No 'Breaking Loose' booklet given: 01/02/17 Hx Alcohol Use: No Drug/Substance Use Hx: No Substance Use Type: None Review of Systems - Review of Systems Comments:: 10/21/18 21:24 GENERAL/CONSTITUTIONAL: No fever or chills. No weakness. HEAD, EYES, EARS, NOSE AND THROAT: No change in vision. No ear pain or discharge. No sore throat. CARDIOVASCULAR: No chest pain or shortness of breath RESPIRATORY: No cough, wheezing, or hemoptysis. GASTROINTESTINAL: +Epigastric / RUQ pain w/ N/V as described. GENITOURINARY: No dysuria, frequency, or change in urination. MUSCULOSKELETAL: No joint or muscle swelling or pain. No neck or back pain. SKIN: No rash NEUROLOGIC: No headache, vertigo, loss of consciousness, or change in strength/ sensation. ENDOCRINE: No increased thirst. No abnormal weight change HEMATOLOGIC/LYMPHATIC: No anemia, easy bleeding, or history of blood clots. ALLERGIC/IMMUNOLOGIC: No hives or skin allergy. *Physical Exam - Vital Signs Last Vital Signs Temp Pulse Resp BP Pulse Ox 98.1 F 96 H 18 111/75 97 10/21/18 20:46 10/21/18 20:46 10/21/18 20:46 10/21/18 20:46 10/21/18 20:46 - Physical Exam Comments: 10/21/18 21:24 GENERAL: Awake, alert, and fully oriented, in no acute distress HEAD: No signs of trauma, normocephalic, atraumatic EYES: PERRLA, EOMI, sclera anicteric, conjunctiva clear ENT: Auricles normal inspection, hearing grossly normal, nares patent, oropharynx clear without exudates. Moist mucosa NECK: Normal ROM, supple, no lymphadenopathy, JVD, or masses LUNGS: No distress, speaks full sentences, clear to auscultation bilaterally HEART: Regular rate and rhythm, normal S1 and S2, no murmurs, rubs or gallops, peripheral pulses normal and equal bilaterally. ABDOMEN: +Epigastric + RUQ TTP. Soft, normoactive bowel sounds. No guarding, no rebound. No masses EXTREMITIES: Normal inspection, Normal range of motion, no edema. No clubbing or cyanosis. NEUROLOGICAL: Cranial nerves II through XII grossly intact. Normal speech, normal gait, no focal sensorimotor deficits SKIN: Warm, Dry, normal turgor, no rashes or lesions noted. Moderate Sedation - Procedure Monitoring Vital Signs: Procedure Monitoring Vital Signs Temperature 98.1 F 10/21/18 20:46 Pulse Rate 96 H 10/21/18 20:46 Respiratory Rate 18 10/21/18 20:46 Blood Pressure 111/75 10/21/18 20:46 O2 Sat by Pulse Oximetry (%) 97 10/21/18 20:46 ED Treatment Course - LABORATORY CBC & Chemistry Diagram: 10/21/18 23:00 10/21/18 23:00 - RADIOLOGY Radiology Studies Ordered: Category Date Time Status ABDOMEN & PELVIS CT WITH CONTR [CT] Stat CT Scan 10/21/18 21:20 Ordered Medical Decision Making - Medical Decision Making 10/22/18 01:52 Mr. Andrade is a 38 yo male w/ pmh as described who presents for evaluation of gastritis like symptoms. Given repeat presentation, patient evaluated with CT abdomen/pelvis with IV/Oral contrast. CT negative for acute process. Only prominent central and right lower quadrant mesenteric lymph nodes likely inflammatory appreciated. Patient labs grossly wnl. No concern for acute process at this time. Will discharge patient with instructions to f/u w/ GI for further evaluation of gastritis symptoms. *DC/Admit/Observation/Transfer Diagnosis at time of Disposition: Epigastric abdominal pain - Discharge Dispostion Disposition: HOME - Referrals - Patient Instructions Printed Discharge Instructions: DI for Gastritis Additional Instructions: You were evaluated today in the ER for your abdominal pain. We performed an abdomen and pelvis CT scan with IV and oral contrast which was negative. All lab values were also negative. No concerning findings were found at this time. Please follow-up with hanging flags decorator as soon as possible for repeat evaluation. Return to ER if any fever, chills, increase in pain, or other concerning symptoms. - Post Discharge Activity
--- NOTE | 2018-10-21 23:00 | PDOC ---
Attending Attestation - Resident Resident Name: Everett Verduzco - ED Attending Attestation I have performed the following: I have examined & evaluated the patient, The case was reviewed & discussed with the resident, I agree w/resident's findings & plan, Exceptions are as noted - HPI HPI: 10/21/18 22:54 The patient is a 38 year old male, with a significant past medical history of acid reflux and gastric ulcer, who presents to the emergency department with, 1 week of epigastric pain with associated nausea and vomiting. Patient was recently evaluated for similar symptoms yesterday, had bloodwork that was normal , and discharged. Pt reports persistent pain today and went to urgent care, where he was advised to return to the ED for further evaluation. He denies any recent fevers, chills, headache or dizziness. He denies any recent diarrhea or constipation. He denies any recent chest pain or shortness of breath. He denies any recent dysuria, frequency, urgency or hematuria. Allergies: Ibuprofen. Primary Care Physician: Dr. Fernandez - Physicial Exam PE: 10/21/18 22:55 GENERAL: Awake, alert, and fully oriented, in no acute distress. HEAD: No signs of trauma EYES: PERRLA, EOMI, sclera anicteric, conjunctiva clear ENT: Auricles normal inspection, hearing grossly normal, nares patent, oropharynx clear without exudates. Moist mucosa NECK: Nontender, no stepoffs, Normal ROM, supple, no lymphadenopathy, JVD, or masses LUNGS: Breath sounds equal, clear to auscultation bilaterally. No wheezes, and no crackles HEART: Regular rate and rhythm, normal S1 and S2, no murmurs, rubs or gallops ABDOMEN: Soft, + epigastric TTP, normoactive bowel sounds. No guarding, no rebound. No masses EXTREMITIES: Normal range of motion, no edema. No clubbing or cyanosis. No cords, erythema, or tenderness NEUROLOGICAL: Cranial nerves II through XII intact. 5/5 strength and sensation in all extremities, Normal speech, normal gait, normal cerebellar function SKIN: Warm, Dry, normal turgor, no rashes or lesions noted. - Medical Decision Making 10/21/18 22:55 38 M with epigastric pain. Has h/o gastric ulcers, likely cause of pt's pain. No RUQ tenderness on exam to suggest fela. No lower abdominal tenderness. - Labs - CTAP - GI cocktail 10/22/18 02:33 CT unremarkable Bedside US with no evidence of cholecystitis Pt reassessed - pain has improved with GI cocktail. Pt is well appearing, with normal vitals. Clinically stable for DC at this time. I discussed the physical exam findings, ancillary test results and final diagnoses with the patient. I answered all of the patient's questions. The patient was satisfied with the care received and felt comfortable with the discharge plan and treatment plan. The patient agrees to follow up with the primary care physician within 24-72 hours.
[2018-10-21] MEDS ORDERED: MAG HYDROX/AL HYDROX/SIMETH 30 ML UNIT-DOSE CUP ONE ×2 (23:05→23:08)
[2018-10-21] MEDS ORDERED: LIDOCAINE VISCOUS 2% ORAL/TOP 20 ML UNIT-DOSE CUP ONE ×2 (23:05→23:08)
[2018-10-21] MEDS ORDERED: ONDANSETRON 4 MG/2 ML VIAL ONE ×2 (23:06→23:08)
[2018-10-21 23:10] LABS: HEMATOCRIT 43.8 % (35.4-49); HEMOGLOBIN 14.9 GM/dL (11.7-16.9); MCH 28.6 pg (25.7-33.7); MCHC 34.1 g/dl (32.0-35.9); MEAN CELL VOLUME 83.9 fl (80-96); MEAN PLT VOLUME 7.5 fl (7.5-11.1); PLATELET COUNT 396 K/MM3 (134-434); RBC 5.21 M/mm3 (4.00-5.60); WHITE BLOOD COUNT 8.7 K/mm3 (4.0-10.0)
[2018-10-21 23:11] LABS: BASO % 0.8 % (0-2.0); LYMPH % 34.6 % (8-40); NEUT % 54.6 % (42.8-82.8)
[2018-10-21 23:44] LABS: ALBUMIN 3.5 g/dl (3.4-5.0); ALK PHOS 122 U/L (45-117); ANION GAP 7 MMOL/L (8-16); BILIRUBIN,TOTAL 0.4 mg/dL (0.2-1); BLOOD UREA NITROGEN 15 mg/dL (7-18); CALCIUM 8.7 mg/dL (8.5-10.1); CHLORIDE 104 mmol/L (98-107); CO2 27 mmol/L (21-32); CREATININE 0.8 mg/dL (0.55-1.3); GLUCOSE,RANDOM 78 mg/dL (74-106); LIPASE 172 U/L (73-393); POTASSIUM 4.7 mmol/L (3.5-5.1); SGOT/AST 22 U/L (15-37); SGPT/ALT 25 U/L (13-61); SODIUM 137 mmol/L (136-145); TOT PROT 7.2 g/dl (6.4-8.2)
== END 2018-10-22 02:34 | disposition home or self-care (01) ==
LOC: JER 20:41
PROC: 3E033GC Introduction of Other Therapeutic Substance into Peripheral Vein, Percutaneous Approach (ICD-10-PCS; principal; 2018-10-21)
PROC: 3E0337Z Introduction of Electrolytic and Water Balance Substance into Peripheral Vein, Percutaneous Approach (ICD-10-PCS; 2018-10-21)
DX: R10.13 Epigastric pain (principal); F17.210 Nicotine dependence, cigarettes, uncomplicated; K21.9 Gastro-esophageal reflux disease without esophagitis
CPT/HCPCS: 36415; 74177-TC; 80053; 83690; 85025; 96361; 96365; 96375; 99282-25; J7030

== ENCOUNTER 2019-07-05 00:03 | Emergency (ER) | payer OTHER ==
--- NOTE | 2019-07-05 00:33 | PDOC ---
Attending Attestation - Resident Resident Name: Randy Logan - ED Attending Attestation I have performed the following: I have examined & evaluated the patient, The case was reviewed & discussed with the resident, I agree w/resident's findings & plan - HPI HPI: 07/05/19 04:08 Pt is overweight and he has been gaining more weight. He comes to the ER for gastric pain. 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 - Physicial Exam PE: 07/05/19 04:09 Agree with resident exam. Diffuse epigastric pain. Afebrile. Rest of exam normal. Bedside sono shows no GB stones. Labs normal. Pt asked to eat more fruits veggies, grains, nuts, beans and to cut out the fat and the acidic foods and to stop skipping meals in an effort to lose weight. He can follow with PMD. - Medical Decision Making 07/05/19 04:10 Stable for discharge.
[2019-07-05] MEDS ORDERED: MAG HYDROX/AL HYDROX/SIMETH -MYLANTA- ORAL SUSPENSION PO ONE (00:46)
[2019-07-05] MEDS ORDERED: FAMOTIDINE 20 MG/50 ML IVPB 20 MG/50 ML MG IVPB ONE ×2 (00:47→00:56)
[2019-07-05] MEDS ORDERED: ONDANSETRON 4 MG/2 ML VIAL IVPB ONE (00:47)
[2019-07-05] MEDS ORDERED: LIDOCAINE VISCOUS 2% ORAL/TOP 20 ML UNIT-DOSE CUP MM ONE (00:47)
[2019-07-05] MEDS ORDERED: SODIUM CHLORIDE 0.9% 500 ML INFUS.BAG IV ONE (00:48)
[2019-07-05] MEDS ORDERED: LIDOCAINE VISCOUS 2% ORAL/TOP 20 ML UNIT-DOSE CUP ONE (00:55)
[2019-07-05] MEDS ORDERED: ONDANSETRON 4 MG/2 ML VIAL ONE (00:56)
[2019-07-05] MEDS ORDERED: MAG HYDROX/AL HYDROX/SIMETH 30 ML UNIT-DOSE CUP ONE (00:56)
[2019-07-05 01:19] LABS: BASO % 1.2 % (0-2.0); EOS % 2.3 % (0-4.5); HEMATOCRIT 45.8 % (35.4-49); LYMPH % 37.1 % (8-40); MCH 28.1 pg (25.7-33.7); MCHC 32.9 g/dl (32.0-35.9); MEAN CELL VOLUME 85.5 fl (80-96); MEAN PLT VOLUME 7.7 fl (7.5-11.1); MONO % 7.5 % (3.8-10.2); NEUT % 51.9 % (42.8-82.8); PLATELET COUNT 383 K/MM3 (134-434); RBC 5.36 M/mm3 (4.00-5.60); RDW 13.4 % (11.9-15.9); WHITE BLOOD COUNT 9.4 K/mm3 (4.0-10.0)
[2019-07-05 01:34] VITALS: BP 117/83; PULSE 73; TEMP 98.1; BMI 32.1
--- NOTE | 2019-07-05 02:33 | PDOC ---
History of Present Illness - General Chief Complaint: Nausea/Vomiting Stated Complaint: VOMITING Time Seen by Provider: 07/05/19 00:32 - History of Present Illness Initial Comments: 07/05/19 02:16 39 y/o/m here for abd pain x1 week and vomiting that started today. He states that his pain is epigastric and burning in nature. He initially had constipation but then started to have diarrhea. Today he had four episodes of vomiting, no blood in vomit. He is unable to keep food down. He has taken Pepto Bismol and Nexium with improvement. He still feels nauseous. He denies chest pain, SOB, fever, cough, sore throat, dysuria or other symptoms. He does not follow up with a GI doctor. PMHx: Acid reflux, gastric ulcer SHx: appendectomy Social: smokes 5-6 cigarettes daily, denies alcohol use Past History - Past Medical History Allergies/Adverse Reactions: Allergies Allergy/AdvReac Type Severity Reaction Status Date / Time ibuprofen [From Motrin] AdvReac Vomiting Verified 07/05/19 01:34 Home Medications: Ambulatory Orders NK [No Known Home Medication] 07/05/19 COPD: No GI Disorders: Yes (gastric ulcers) - Surgical History Appendectomy: Yes - Immunization History Immunization Up to Date: Yes - Suicide/Smoking/Psychosocial Hx Smoking History: Current every day smoker Have you smoked in the past 12 months: No Number of Cigarettes Smoked Daily: 5 If you are a former smoker, when did you quit?: 3 wks Information on smoking cessation initiated: Yes 'Breaking Loose' booklet given: 01/02/17 Hx Alcohol Use: No Drug/Substance Use Hx: No Substance Use Type: None Review of Systems - Review of Systems Constitutional: No: Chills, Fever HEENTM: No: Nose Congestion Respiratory: No: Cough, Shortness of Breath Cardiac (ROS): No: Chest Pain, Lightheadedness ABD/GI: Yes: Diarrhea, Nausea, Vomiting, Other (abd pain) Musculoskeletal: No: Back Pain Integumentary: No: Rash Neurological: No: Headache Endocrine: No: Excessive Sweating *Physical Exam - Vital Signs Last Vital Signs Temp Pulse Resp BP Pulse Ox 98.1 F 73 19 117/83 100 07/05/19 00:35 07/05/19 00:35 07/05/19 00:35 07/05/19 00:35 07/05/19 00:35 - Physical Exam General Appearance: Yes: Nourished, Appropriately Dressed HEENT: positive: EOMI, Normal Voice, Symmetrical Neck: positive: Trachea midline, Supple Respiratory/Chest: positive: Lungs Clear, Normal Breath Sounds Cardiovascular: positive: Regular Rhythm, Regular Rate, S1, S2 Gastrointestinal/Abdominal: positive: Normal Bowel Sounds, Tender (epigastric tenderness to palpation), Soft. negative: Guarding, Rebound Musculoskeletal: negative: CVA Tenderness Extremity: positive: Normal Capillary Refill Integumentary: positive: Normal Color Neurologic: positive: Fully Oriented, Alert, Motor Strength 02/16 ED Treatment Course - LABORATORY CBC & Chemistry Diagram: 07/05/19 01:10 07/05/19 01:10 - ADDITIONAL ORDERS Additional order review: 07/05/19 01:10 RBC 5.36 MCV 85.5 MCHC 32.9 RDW 13.4 MPV 7.7 Neutrophils % 51.9 Lymphocytes % 37.1 Monocytes % 7.5 Eosinophils % 2.3 Basophils % 1.2 - Medications Given in the ED: ED Medications Discontinued Medications Generic Name Dose Route Start Last Admin Trade Name Freq PRN Reason Stop Dose Admin Al Hydroxide/Mg Hydroxide 30 ml 07/05/19 00:46 07/05/19 01:21 Mylanta Suspension - PO 07/05/19 00:47 30 ml ONCE ONE Administration Famotidine/Sodium Chloride 20 mg in 50 mls @ 100 mls/hr 07/05/19 00:47 01:21 Pepcid 20 Mg Premixed Ivpb - IVPB 07/05/19 01:16 100 mls/hr ONCE ONE Administration Lidocaine HCl 20 ml 07/05/19 00:47 07/05/19 01:21 Xylocaine 2% Viscous Oral - MM 07/05/19 00:48 20 ml ONCE ONE Administration Ondansetron HCl 8 mg 07/05/19 00:47 07/05/19 01:22 Zofran Injection IVPB 07/05/19 00:48 8 mg ONCE ONE Administration Sodium Chloride 1,000 ml 07/05/19 00:48 07/05/19 01:22 Normal Saline - IV 07/05/19 00:49 1,000 ml ONCE ONE Administration Medical Decision Making - Medical Decision Making 07/05/19 02:34 -39 y/o/m here for abd pain x1 week and vomiting that started today. He states that his pain is epigastric and burning in nature. He initially had constipation but then started to have diarrhea. Today he had four episodes of vomiting, no blood in vomit. Patient has been seen here before for similar symptoms. Bedside ultrasound performed. No evidence of gallstones or biliary duct dilation. -CBC, CMP, Lipase -Fluids, Viscus Lidocaine, Pepcid, Maalox, and Zofran given for symptoms. -Will reassess. 07/05/19 03:32 -Patient resting comfortably, states that pain is improved. -Waiting on results of CMP to dispo accordingly. Contacted lab, told that lab is having difficulty with equipment. 07/05/19 03:47 -CBC, CMP grossly normal. -Starting patient on PO challenge. 07/05/19 03:58 -Patient tolerated PO challenge with no pain or nausea. -Will discharge patient home with follow up instructions and referral for Dr. Marina, GI. *DC/Admit/Observation/Transfer Diagnosis at time of Disposition: Epigastric abdominal pain - Discharge Dispostion Disposition: HOME Condition at time of disposition: Improved Decision to Admit order: No - Referrals Referrals: Jitendra Marina MD [Staff Physician] - - Patient Instructions Printed Discharge Instructions: DI for Gastritis Additional Instructions: If you have worsening pain, vomiting, diarrhea, fever, chest pain or other concerning symptoms please return to the ED. Please follow up with your primary care doctor in the next few days. It is important to follow up with a gastroenterology doctor to create a better plan to manage your symptoms, we have given you a referral for Dr. Marina if you would like to contact his office to schedule an appointment. - Post Discharge Activity
[2019-07-05 03:42] LABS: CALCIUM 10.1 mg/dL (8.5-10.1); CREATININE 0.8 mg/dL (0.55-1.3)
[2019-07-05 03:43] LABS: ALBUMIN 3.8 g/dl (3.4-5.0); BILIRUBIN,TOTAL 0.7 mg/dL (0.2-1); TOT PROT 7.4 g/dl (6.4-8.2)
[2019-07-05 07:01] LABS: BLOOD UREA NITROGEN 15.9 mg/dL (7-18); POTASSIUM 4.8 mmol/L (3.5-5.1)
== END 2019-07-05 04:28 | disposition home or self-care (01) ==
LOC: JER 00:03
PROC: 3E033GC Introduction of Other Therapeutic Substance into Peripheral Vein, Percutaneous Approach (ICD-10-PCS; principal; 2019-07-05)
PROC: 3E033GC Introduction of Other Therapeutic Substance into Peripheral Vein, Percutaneous Approach (ICD-10-PCS; 2019-07-05)
DX: R10.13 Epigastric pain (principal)
CPT/HCPCS: 36415; 80053; 83690; 85025; 96365; 96375; 99283-25

== ENCOUNTER 2019-08-22 17:39 | Emergency (ER) | payer OTHER ==
[2019-08-22 17:44] VITALS: BMI 32.1
[2019-08-22] MEDS ORDERED: SODIUM CHLORIDE 1,000 ML IV STA (17:45)
[2019-08-22] MEDS ORDERED: FAMOTIDINE 20 MG/50 ML IVPB 20 MG/50 ML MG IVPB ONE ×2 (17:45→18:24)
[2019-08-22] MEDS ORDERED: ONDANSETRON 4 MG/2 ML VIAL IVPUSH ONE (17:45)
--- NOTE | 2019-08-22 17:45 | PDOC ---
Rapid Medical Evaluation Medical Evaluation: Allergies Allergy/AdvReac Type Severity Reaction Status Date / Time ibuprofen [From Motrin] AdvReac Vomiting Verified 07/05/19 01:34 I have performed a brief in-person evaluation of this patient. The patient presents with a chief complaint of: C/O epigastric pain from today along with 5-6 episodes of NBNB emesis; denies diarrhea, fever, urinary complaints, chest pain; patient was seen 2 months ago for similar sxs; states was unable to f/u with his PCP; denies alcohol use Pertinent physical exam findings: In NAD, mild epigastric tenderness I have ordered the following: Labs, IVF, zofran The patient will proceed to the ED for further evaluation. 08/22/19 17:42
[2019-08-22 18:01] LABS: EOS % 0.6 % (0-4.5); HEMATOCRIT 47.7 % (35.4-49); HEMOGLOBIN 15.9 GM/dL (11.7-16.9); LYMPH % 15.3 % (8-40); MCH 28.8 pg (25.7-33.7); MCHC 33.3 g/dl (32.0-35.9); MEAN CELL VOLUME 86.4 fl (80-96); MEAN PLT VOLUME 7.7 fl (7.5-11.1); MONO % 4.8 % (3.8-10.2); NEUT % 78.3 % (42.8-82.8); PLATELET COUNT 407 K/MM3 (134-434); RBC 5.52 M/mm3 (4.00-5.60); WHITE BLOOD COUNT 9.7 K/mm3 (4.0-10.0)
[2019-08-22] MEDS ORDERED: ONDANSETRON 4 MG/2 ML VIAL ONE (18:24)
[2019-08-22 18:31] LABS: ALBUMIN 4.1 g/dl (3.4-5.0); BILIRUBIN,TOTAL 0.6 mg/dL (0.2-1); CALCIUM 9.9 mg/dL (8.5-10.1); CREATININE 0.9 mg/dL (0.55-1.3); POTASSIUM 4.3 mmol/L (3.5-5.1); TOT PROT 7.4 g/dl (6.4-8.2)
[2019-08-22] MEDS ORDERED: LIDOCAINE VISCOUS 2% ORAL/TOP 20 ML UNIT-DOSE CUP MM ONE (19:45)
[2019-08-22] MEDS ORDERED: MAG HYDROX/AL HYDROX/SIMETH 30 ML UNIT-DOSE CUP PO ONE (19:45)
--- NOTE | 2019-08-22 19:45 | PDOC ---
History of Present Illness - General Chief Complaint: Pain Stated Complaint: ABD PAIN Time Seen by Provider: 08/22/19 17:42 Past History - Past Medical History Allergies/Adverse Reactions: Allergies Allergy/AdvReac Type Severity Reaction Status Date / Time ibuprofen [From Motrin] AdvReac Vomiting Verified 08/22/19 17:44 Home Medications: Ambulatory Orders NK [No Known Home Medication] 07/05/19 COPD: No GI Disorders: Yes (gastric ulcers) - Surgical History Appendectomy: Yes - Immunization History Immunization Up to Date: Yes - Psycho Social/Smoking Cessation Hx Smoking History: Current some day smoker Have you smoked in the past 12 months: No Number of Cigarettes Smoked Daily: 1 If you are a former smoker, when did you quit?: 3 wks Information on smoking cessation initiated: No 'Breaking Loose' booklet given: 01/02/17 Hx Alcohol Use: No Drug/Substance Use Hx: No Substance Use Type: None Review of Systems - Review of Systems Able to Perform ROS?: Yes Comments:: GENERAL/CONSTITUTIONAL: No fever or chills. No weakness._ HEAD, EYES, EARS, NOSE AND THROAT: No change in vision. No change in hearing. No sore throat._ CARDIOVASCULAR: No chest pain or shortness of breath_ RESPIRATORY: Denies cough, hemoptysis_ GASTROINTESTINAL: No nausea, vomiting, diarrhea or constipation._ GENITOURINARY: No dysuria, frequency, or change in urination._ MUSCULOSKELETAL: No joint or muscle swelling or pain. No neck or back pain._ SKIN: No rash_ NEUROLOGIC: No headache, vertigo, loss of consciousness, or change in strength/ sensation._ ENDOCRINE: No increased thirst. No abnormal weight change_ HEMATOLOGIC/LYMPHATIC: No anemia, easy bleeding, or history of blood clots._ ALLERGIC/IMMUNOLOGIC: No hives or skin allergy._ 08/22/19 19:45 Is the patient limited Mohawk proficient: No *Physical Exam - Vital Signs Last Vital Signs Temp Pulse Resp BP Pulse Ox 98 F 93 H 18 128/79 98 08/22/19 17:41 08/22/19 17:41 08/22/19 17:41 08/22/19 17:41 08/22/19 17:41 - Physical Exam Comments: GENERAL: Awake, alert, and oriented to person/place/time, in no acute distress_ HEAD: No signs of trauma, normocephalic, atraumatic _ EYES: PERRLA, EOMI, sclera anicteric, conjunctiva clear_ ENT: Hearing grossly normal, nares patent, oropharynx clear without exudates. No uvular deviation. Moist mucosa_ NECK: Normal ROM, supple, no lymphadenopathy, JVD, or masses_ LUNGS: No distress, speaks in full sentences, clear to auscultation bilaterally _ HEART: Regular rate and rhythm, normal S1 and S2, no murmurs appreciated, peripheral pulses normal and equal bilaterally._ ABDOMEN: Soft, nontender, normoactive bowel sounds. No guarding, no rebound. No masses_ EXTREMITIES: Normal inspection, Normal range of motion, no edema. No clubbing or cyanosis_ NEUROLOGICAL: Cranial nerves II through XII grossly intact. Normal speech, normal gait, no focal sensorimotor deficits _ SKIN: Warm, Dry, normal turgor, no rashes or lesions noted_ 08/22/19 19:45 ED Treatment Course - LABORATORY CBC & Chemistry Diagram: 08/22/19 17:53 08/22/19 17:53 - ADDITIONAL ORDERS Additional order review: Laboratory Results 08/22/19 17:53 Sodium 139 Potassium 4.3 Chloride 106 Carbon Dioxide 31 Anion Gap 2 L BUN 16.0 Creatinine 0.9 Est GFR (CKD-EPI)AfAm 125.13 Est GFR (CKD-EPI)NonAf 107.97 Random Glucose 102 Calcium 9.9 Total Bilirubin 0.6 AST 18 ALT 23 Alkaline Phosphatase 103 Total Protein 7.4 Albumin 4.1 Lipase 92 08/22/19 17:53 RBC 5.52 MCV 86.4 MCHC 33.3 RDW 13.0 MPV 7.7 Neutrophils % 78.3 D Lymphocytes % 15.3 D Monocytes % 4.8 Eosinophils % 0.6 Basophils % 1.0 - Medications Given in the ED: ED Medications Discontinued Medications Generic Name Dose Route Start Last Admin Trade Name Freq PRN Reason Stop Dose Admin Famotidine/Sodium Chloride 20 mg in 50 mls @ 100 mls/hr 08/22/19 17:45 18:55 Pepcid 20 Mg Premixed Ivpb - IVPB 08/22/19 18:14 100 mls/hr ONCE ONE Administration Sodium Chloride 1,000 mls @ 1,000 mls/hr 08/22/19 17:45 08/22/19 18:55 Normal Saline - IV 08/22/19 18:44 1,000 mls/hr ASDIR STA Administration Ondansetron HCl 4 mg 08/22/19 17:45 08/22/19 18:55 Zofran Injection IVPUSH 08/22/19 17:46 4 mg ONCE ONE Administration
[2019-08-22] MEDS ORDERED: LIDOCAINE VISCOUS 2% ORAL/TOP 20 ML UNIT-DOSE CUP ONE (19:54)
[2019-08-22] MEDS ORDERED: MAG HYDROX/AL HYDROX/SIMETH 30 ML UNIT-DOSE CUP ONE (19:54)
--- NOTE | 2019-08-22 19:56 | PDOC ---
History of Present Illness - General Chief Complaint: Pain Stated Complaint: ABD PAIN Time Seen by Provider: 08/22/19 17:42 - History of Present Illness Initial Comments: The pt is a 39M w/ a history of GERD/PUD who presents for evaluation of 2 days of epigastric abdominal pain and N/V. The pt states that the pain is burning, non-radiating, constant, exacerbated/worsened by spicy/heavily seasoned foods, and not alleviated by anything he can identify. He has not tried taking anything for his symptoms. He states he used to be on maintenance therapy but has not this year bc his symptoms have improved. He states these symptoms are typical of his PUD/reflux symptoms. Denies fevers/chills, chest pain, trouble breathing, diarrhea, dysuria, hematuria, or blood in his stool. 08/22/19 19:46 Past History - Past Medical History Allergies/Adverse Reactions: Allergies Allergy/AdvReac Type Severity Reaction Status Date / Time ibuprofen [From Motrin] AdvReac Vomiting Verified 08/22/19 17:44 Home Medications: Ambulatory Orders Cetirizine HCl [Zyrtec -] 10 mg PO DAILY #10 tablet 08/22/19 Esomeprazole Magnesium [Nexium 24Hr] 20 mg PO DAILY #14 capsule. 08/22/19 COPD: No GI Disorders: Yes (gastric ulcers) - Surgical History Appendectomy: Yes - Immunization History Immunization Up to Date: Yes - Psycho Social/Smoking Cessation Hx Smoking History: Current some day smoker Have you smoked in the past 12 months: No Number of Cigarettes Smoked Daily: 1 If you are a former smoker, when did you quit?: 3 wks Information on smoking cessation initiated: No 'Breaking Loose' booklet given: 01/02/17 Hx Alcohol Use: No Drug/Substance Use Hx: No Substance Use Type: None Review of Systems - Review of Systems Able to Perform ROS?: Yes Comments:: GENERAL/CONSTITUTIONAL: No fever or chills. No weakness HEAD, EYES, EARS, NOSE AND THROAT: No change in vision. No change in hearing. No sore throat CARDIOVASCULAR: No chest pain or shortness of breath RESPIRATORY: Denies cough, hemoptysis GASTROINTESTINAL: +N/V; diarrhea or constipation GENITOURINARY: No dysuria, frequency, or change in urination MUSCULOSKELETAL: No joint or muscle swelling or pain. No neck or back pain SKIN: No rash NEUROLOGIC: No headache, vertigo, loss of consciousness, or change in strength/ sensation ENDOCRINE: No increased thirst. No abnormal weight change HEMATOLOGIC/LYMPHATIC: No anemia, easy bleeding, or history of blood clots ALLERGIC/IMMUNOLOGIC: No hives or skin allergy 08/22/19 20:01 Is the patient limited Irish proficient: No *Physical Exam - Vital Signs Last Vital Signs Temp Pulse Resp BP Pulse Ox 98 F 93 H 18 128/79 98 08/22/19 17:41 08/22/19 17:41 08/22/19 17:41 08/22/19 17:41 08/22/19 17:41 - Physical Exam Comments: GENERAL: Awake, alert, and oriented to person/place/time, in no acute distress HEAD: No signs of trauma, normocephalic, atraumatic EYES: PERRLA, EOMI, sclera anicteric, conjunctiva clear ENT: Hearing grossly normal, nares patent, oropharynx clear without exudates. Moist mucosa LUNGS: No distress, speaks in full sentences, clear to auscultation bilaterally HEART: Regular rate and rhythm, normal S1 and S2, no murmurs appreciated, peripheral pulses normal and equal bilaterally ABDOMEN: Soft, mild epigastric TTP w/o rebound or guarding; normoactive bowel sounds EXTREMITIES: Normal inspection, Normal range of motion, no edema. No clubbing or cyanosis NEUROLOGICAL: Cranial nerves II through XII grossly intact. Normal speech, no focal sensorimotor deficits SKIN: Warm, Dry 08/22/19 20:01 ED Treatment Course - LABORATORY CBC & Chemistry Diagram: 08/22/19 17:53 08/22/19 17:53 - ADDITIONAL ORDERS Additional order review: Laboratory Results 08/22/19 17:53 Sodium 139 Potassium 4.3 Chloride 106 Carbon Dioxide 31 Anion Gap 2 L BUN 16.0 Creatinine 0.9 Est GFR (CKD-EPI)AfAm 125.13 Est GFR (CKD-EPI)NonAf 107.97 Random Glucose 102 Calcium 9.9 Total Bilirubin 0.6 AST 18 ALT 23 Alkaline Phosphatase 103 Total Protein 7.4 Albumin 4.1 Lipase 92 08/22/19 17:53 RBC 5.52 MCV 86.4 MCHC 33.3 RDW 13.0 MPV 7.7 Neutrophils % 78.3 D Lymphocytes % 15.3 D Monocytes % 4.8 Eosinophils % 0.6 Basophils % 1.0 - Medications Given in the ED: ED Medications Discontinued Medications Generic Name Dose Route Start Last Admin Trade Name Yael PRN Reason Stop Dose Admin Famotidine/Sodium Chloride 20 mg in 50 mls @ 100 mls/hr 08/22/19 17:45 18:55 Pepcid 20 Mg Premixed Ivpb - IVPB 08/22/19 18:14 100 mls/hr ONCE ONE Administration Sodium Chloride 1,000 mls @ 1,000 mls/hr 08/22/19 17:45 08/22/19 18:55 Normal Saline - IV 08/22/19 18:44 1,000 mls/hr ASDIR STA Administration Ondansetron HCl 4 mg 08/22/19 17:45 08/22/19 18:55 Zofran Injection IVPUSH 08/22/19 17:46 4 mg ONCE ONE Administration Medical Decision Making - Medical Decision Making The pt is a 39M w/ a history of GERD/PUD who presents for evaluation of 2 days of epigastric abdominal pain and N/V consistent with his GERD/PUD ED Course CMP, Lipase, CBC IVF, Pepcid, Maalox, Viscous lido Lytes wnl Lipase wnl LFTs wnl No PAT No leukocytosis No anemia Will PO challenge Rx for Nexium and Zyrtec 08/22/19 20:06 Pt tolerated PO in ED Plan for D/C w/ PCP f/u Discharge instructions and return precautions given Patient in agreement and verbalized understanding Dispo: Home 08/22/19 20:54 Discharge - Discharge Information Problems reviewed: Yes Clinical Impression/Diagnosis: PUD (peptic ulcer disease) GERD (gastroesophageal reflux disease) Qualifiers: Esophagitis presence: esophagitis presence not specified Qualified Code(s): K21.9 - Gastro-esophageal reflux disease without esophagitis Condition: Stable - Admission No - Additional Discharge Information Prescriptions: Cetirizine HCl [Zyrtec -] 10 mg PO DAILY #10 tablet Esomeprazole Magnesium [Nexium 24Hr] 20 mg PO DAILY #14 capsule. - Follow up/Referral Referrals: [facility] [place] [facility] [Provider Group] Dami Baker DO [Staff Physician] - - Patient Discharge Instructions Patient Printed Discharge Instructions: DI for Peptic Ulcer Additional Instructions: You were seen in the Emergency Department for evaluation of nausea/vomiting. Your labs were unremarkable. A prescription for Nexium and Zyrtec was sent to your pharmacy. Take as directed. Review the handouts provided at discharge. Follow up with the primary care and gastroenterology referrals provided. Return to the Emergency Department if you develop fevers, chest pain, trouble breathing, worsening pain, change in sensation, worsening symptoms, or any new/ concerning symptoms. - Post Discharge Activity
[2019-08-22 20:47] VITALS: BP 117/85; PULSE 92; TEMP 97.7
== END 2019-08-22 21:02 | disposition home or self-care (01) ==
LOC: JER 17:39
PROC: 3E033GC Introduction of Other Therapeutic Substance into Peripheral Vein, Percutaneous Approach (ICD-10-PCS; principal; 2019-08-22)
PROC: 3E033GC Introduction of Other Therapeutic Substance into Peripheral Vein, Percutaneous Approach (ICD-10-PCS; 2019-08-22)
DX: K27.9 Peptic ulcer, site unspecified, unspecified as acute or chronic, without hemorrhage or perforation (principal); K21.9 Gastro-esophageal reflux disease without esophagitis; Z88.6 Allergy status to analgesic agent
CPT/HCPCS: 36415; 80053; 83690; 85025; 96365; 96375; 99283-25; J7030

== ENCOUNTER 2019-10-08 20:16 | Emergency (ER) | payer OTHER ==
[2019-10-08 20:24] VITALS: TEMP 98
[2019-10-08 21:31] VITALS: BMI 31.6
--- NOTE | 2019-10-08 21:39 | PDOC ---
History of Present Illness - General Chief Complaint: Pain Stated Complaint: ABD PAIN - History of Present Illness Initial Comments: The pt is a 39M w/ a history of GERD/PUD who presents for evaluation of 2 days of epigastric abdominal pain and N/V. The pt states that the pain is burning, radiates to his abdomen and chest, is constant, exacerbated/worsened by spicy/ heavily seasoned foods, and not alleviated by anything he can identify. He has not tried taking anything for his symptoms. He states he used to be on maintenance therapy but stopped taking Nexium because it no longer works. He states these symptoms are typical of his PUD/reflux symptoms. Denies fevers/chills, chest pain, trouble breathing, diarrhea, dysuria, hematuria, or blood in his stool. 10/08/19 21:40 Past History - Past Medical History Allergies/Adverse Reactions: Allergies Allergy/AdvReac Type Severity Reaction Status Date / Time ibuprofen [From Motrin] AdvReac Vomiting Verified 10/08/19 21:26 Home Medications: Ambulatory Orders Esomeprazole Magnesium [Nexium 24Hr] 20 mg PO DAILY #14 capsule. 08/22/19 Ranitidine HCl [Zantac] 150 mg PO DAILY #10 tablet 08/22/19 COPD: No GI Disorders: Yes (gastric ulcers) - Surgical History Appendectomy: Yes - Immunization History Immunization Up to Date: Yes - Psycho Social/Smoking Cessation Hx Smoking History: Current every day smoker Have you smoked in the past 12 months: No Number of Cigarettes Smoked Daily: 5 If you are a former smoker, when did you quit?: 3 wks Information on smoking cessation initiated: Yes 'Breaking Loose' booklet given: 01/02/17 Hx Alcohol Use: No Drug/Substance Use Hx: No Substance Use Type: None Review of Systems - Review of Systems Able to Perform ROS?: Yes Comments:: GENERAL/CONSTITUTIONAL: No fever or chills. No weakness HEAD, EYES, EARS, NOSE AND THROAT: No change in vision. No change in hearing. No sore throat CARDIOVASCULAR: No chest pain or shortness of breath RESPIRATORY: Denies cough, hemoptysis GASTROINTESTINAL: +N, NBNB Vx2, denies diarrhea, constipation GENITOURINARY: No dysuria, frequency, or change in urination. MUSCULOSKELETAL: No joint or muscle swelling or pain. No neck or back pain SKIN: No rash NEUROLOGIC: No headache, vertigo, loss of consciousness, or change in strength/ sensation ENDOCRINE: No increased thirst. No abnormal weight change HEMATOLOGIC/LYMPHATIC: No anemia, easy bleeding, or history of blood clots ALLERGIC/IMMUNOLOGIC: No hives or skin allergy 10/08/19 21:39 Is the patient limited Latvian proficient: No *Physical Exam - Vital Signs Last Vital Signs Temp Pulse Resp BP Pulse Ox 98 F 71 20 118/77 98 10/08/19 20:22 10/08/19 20:22 10/08/19 20:22 10/08/19 21:29 10/08/19 20:22 - Physical Exam GENERAL: Awake, alert, and oriented to person/place/time, in no acute distress HEAD: No signs of trauma, normocephalic, atraumatic EYES: PERRLA, EOMI, sclera anicteric, conjunctiva clear ENT: Hearing grossly normal, nares patent, oropharynx clear without exudates. Moist mucosa LUNGS: No distress, speaks in full sentences, clear to auscultation bilaterally HEART: Regular rate and rhythm, normal S1 and S2, no murmurs appreciated, peripheral pulses normal and equal bilaterally ABDOMEN: Soft, epigastric TTP w/o rebound or guarding, normoactive bowel sounds EXTREMITIES: Normal inspection, Normal range of motion, no edema. No clubbing or cyanosis NEUROLOGICAL: Cranial nerves II through XII grossly intact. Normal speech, normal gait, no focal sensorimotor deficits SKIN: Warm, Dry 10/08/19 21:39 ED Treatment Course - LABORATORY CBC & Chemistry Diagram: 10/08/19 22:00 10/08/19 22:45 - RADIOLOGY Radiograph Interpretation: THIS IS A PRELIMINARY REPORT FROM [facility] DATE OF SERVICE: 2019-10-08 23:33:22 EXAM: CT chest, abdomen and pelvis WITHOUT CONTRAST IMPRESSION: Suspected duodenitis and small ulceration, suggesting peptic ulcer disease, without abscess or free air. No intrathoracic pathology. 10/09/19 00:19 Medical Decision Making - Medical Decision Making The pt is a 39M w/ a history of GERD/PUD who presents for evaluation of 2 days of epigastric abdominal pain and N/V. ED Course CMP, CBC, Trop I ECG IVF, Pepcid, Maalox, Ofirmev for symptomatic relief 10/08/19 21:58 Given history of gastric ulcer and recent multiple episodes of emesis today and yesterday -Will obtain CT CAP non-con to evaluate for free air Pt feels mildly improved s/p meds 10/08/19 23:37 CT w/o evidence of free air, duodenal inflammation noted Pt's labs pending Pt receiving remainder of IVF Pt signed out to Dr. Tomas Discharge - Discharge Information Problems reviewed: Yes Clinical Impression/Diagnosis: GERD (gastroesophageal reflux disease) Qualifiers: Esophagitis presence: esophagitis presence not specified Qualified Code(s): K21.9 - Gastro-esophageal reflux disease without esophagitis Condition: Stable - Admission No - Follow up/Referral Referrals: Navarro Bates MD [Staff Physician] - - Patient Discharge Instructions Patient Printed Discharge Instructions: DI for Peptic Ulcer - Post Discharge Activity
[2019-10-08] MEDS ORDERED: MAG HYDROX/AL HYDROX/SIMETH -MYLANTA- ORAL SUSPENSION PO ONE (21:55)
[2019-10-08] MEDS ORDERED: FAMOTIDINE 20 MG/50 ML IVPB 20 MG/50 ML MG IVPB ONE ×2 (21:55→22:05)
[2019-10-08] MEDS ORDERED: ACETAMINOPHEN 1000 MG/100 ML VIAL (NON FORMULARY) IVPB ONE (21:55)
[2019-10-08] MEDS ORDERED: SODIUM CHLORIDE 0.9% 500 ML INFUS.BAG IV ONE (21:56)
[2019-10-08] MEDS ORDERED: ACETAMINOPHEN INJECTION 100 ML IVPB ONE (22:05)
[2019-10-08] MEDS ORDERED: ONDANSETRON 4 MG/2 ML VIAL ONE (22:05)
[2019-10-08] MEDS ORDERED: MAG HYDROX/AL HYDROX/SIMETH 30 ML UNIT-DOSE CUP ONE (22:05)
[2019-10-08] MEDS ORDERED: ONDANSETRON 4 MG/2 ML VIAL IVPUSH ONE (22:14)
[2019-10-08 22:36] LABS: BASO % 0.5 % (0-2.0); EOS % 2.4 % (0-4.5); HEMATOCRIT 50.8 % (35.4-49); HEMOGLOBIN 16.8 GM/dL (11.7-16.9); LYMPH % 24.4 % (8-40); MCH 28.6 pg (25.7-33.7); MCHC 33.1 g/dl (32.0-35.9); MEAN CELL VOLUME 86.5 fl (80-96); MONO % 7.4 % (3.8-10.2); NEUT % 65.3 % (42.8-82.8); PLATELET COUNT 399 K/MM3 (134-434); RBC 5.88 M/mm3 (4.00-5.60); RDW 13.3 % (11.9-15.9); WHITE BLOOD COUNT 8.9 K/mm3 (4.0-10.0)
[2019-10-08 23:37] LABS: ALBUMIN 4.2 g/dl (3.4-5.0); ALK PHOS 108 U/L (45-117); ANION GAP 6 MMOL/L (8-16); BILIRUBIN,TOTAL 0.5 mg/dL (0.2-1); BLOOD UREA NITROGEN 17.8 mg/dL (7-18); CALCIUM 10.9 mg/dL (8.5-10.1); CHLORIDE 102 mmol/L (98-107); CO2 31 mmol/L (21-32); CREATININE 0.9 mg/dL (0.55-1.3); GLUCOSE,RANDOM 81 mg/dL (74-106); POTASSIUM 4.3 mmol/L (3.5-5.1); SGOT/AST 21 U/L (15-37); SGPT/ALT 21 U/L (13-61); SODIUM 139 mmol/L (136-145); TOT PROT 8.2 g/dl (6.4-8.2)
--- NOTE | 2019-10-08 23:48 | PDOC ---
Attending Attestation - Resident Resident Name: IrisAlex rosas - ED Attending Attestation I have performed the following: I have examined & evaluated the patient, The case was reviewed & discussed with the resident, I agree w/resident's findings & plan - HPI HPI: 10/08/19 23:44 see resident hpi 10/08/19 23:45 - Physicial Exam PE: 10/08/19 23:45 agree with resident exam - Medical Decision Making 10/08/19 23:46 39-year-old male with history of peptic ulcer disease currently untreated complaining of severe midepigastric and chest pain after several days of eating spicy food Patient has had vomiting several times We will CT chest abdomen pelvis to rule out free air/Boerhaave's/ulcer perforation Antacids with plan to DC on PPI if negative
[2019-10-09] MEDS ORDERED: SUCRALFATE 1 GM/10 ML UNIT DOSE CUPS PO ONE (01:10)
[2019-10-09] MEDS ORDERED: METOCLOPRAMIDE HCL INJECTION 10 MG/2 ML VIAL IVPUSH ONE (01:11)
--- NOTE | 2019-10-09 01:13 | PDOC ---
*Physical Exam - Vital Signs Last Vital Signs Temp Pulse Resp BP Pulse Ox 98 F 80 16 124/89 98 10/08/19 20:22 10/09/19 00:25 10/09/19 00:25 10/09/19 00:25 10/09/19 00:25 ED Treatment Course - LABORATORY CBC & Chemistry Diagram: 10/08/19 22:00 10/08/19 22:45 - ADDITIONAL ORDERS Additional order review: Laboratory Results 10/08/19 22:45 Sodium 139 Potassium 4.3 Chloride 102 Carbon Dioxide 31 Anion Gap 6 L BUN 17.8 Creatinine 0.9 Est GFR (CKD-EPI)AfAm 125.13 Est GFR (CKD-EPI)NonAf 107.97 Random Glucose 81 Calcium 10.9 H Total Bilirubin 0.5 AST 21 ALT 21 Alkaline Phosphatase 108 Total Protein 8.2 Albumin 4.2 10/08/19 22:00 RBC 5.88 H MCV 86.5 MCHC 33.1 RDW 13.3 MPV 8.0 Neutrophils % 65.3 Lymphocytes % 24.4 D Monocytes % 7.4 Eosinophils % 2.4 D Basophils % 0.5 - Medications Given in the ED: ED Medications Discontinued Medications Generic Name Dose Route Start Last Admin Trade Name Freq PRN Reason Stop Dose Admin Acetaminophen 1,000 mg 10/08/19 21:55 10/08/19 22:01 Ofirmev Injection - IVPB 10/08/19 21:56 1,000 mg ONCE ONE Administration Al Hydroxide/Mg Hydroxide 30 ml 10/08/19 21:55 10/08/19 22:01 Mylanta Suspension - PO 10/08/19 21:56 30 ml ONCE ONE Administration Famotidine/Sodium Chloride 20 mg in 50 mls @ 100 mls/hr 10/08/19 21:55 22:01 Pepcid 20 Mg Premixed Ivpb - IVPB 10/08/19 22:24 100 mls/hr ONCE ONE Administration Ondansetron HCl 4 mg 10/08/19 22:14 10/08/19 22:44 Zofran Injection IVPUSH 10/08/19 22:15 4 mg ONCE ONE Administration Sodium Chloride 1,000 ml 10/08/19 21:56 10/08/19 22:00 Normal Saline - IV 10/08/19 21:57 1,000 ml ONCE ONE Administration Medical Decision Making - Medical Decision Making Patient signed out by Dr. Rayo 39yo M with PMH of GERD/PUD complaining of epigastric abdominal pain, nausea, vomiting x 2 days. Upon reassessment, patient with 7/10 abdominal pain. Still nauseous We will trial reglan and carafate Will reassess 10/09/19 01:12 Patient feeling better; tolerating po intake: eating cheetos in bed Prescription for carafate sent to pharmacy Patient to follow up with GI Return precautions Stable for discharge 10/09/19 02:49 Received call from [address] that patient's insurance does not cover the liquid solution of carafate; prescription switched to tablet Discharge - Discharge Information Problems reviewed: Yes Clinical Impression/Diagnosis: PUD (peptic ulcer disease) GERD (gastroesophageal reflux disease) Qualifiers: Esophagitis presence: esophagitis presence not specified Qualified Code(s): K21.9 - Gastro-esophageal reflux disease without esophagitis Condition: Improved Disposition: HOME - Additional Discharge Information Prescriptions: Sucralfate Oral Suspension [Carafate *Oral Susp*] 1 gm PO QID #1 bottle - Follow up/Referral Referrals: Navarro Bates MD [Staff Physician] - - Patient Discharge Instructions Patient Printed Discharge Instructions: DI for Peptic Ulcer Additional Instructions: You came into the emergency department with abdominal pain. We did a CT scan which did not show acute pathology. Prescription sent to your pharmacy. Take as instructed. Follow-up with your GI doctor to discuss this ED visit and to further evaluate your symptoms. Call and make an appointment tomorrow morning. Your workup is not complete until you do so. Immediate medical attention is required if have: chest pain, palpitations, shortness of breath, severe headaches, changes in vision, focal numbness or weakness, severe abdominal pain, black tarry stool, or any new or concerning symptoms. If you think you are having an emergency, call for emergency medical services or present to the emergency department right away. - Post Discharge Activity Work/Back to School Note: Back to Work
[2019-10-09] MEDS ORDERED: METOCLOPRAMIDE HCL INJECTION 10 MG/2 ML VIAL ONE (01:23)
[2019-10-09 03:03] VITALS: BP 113/90; PULSE 72
--- NOTE | 2019-10-09 10:28 | EKG ---
Test Reason : Blood Pressure : / mmHG Vent. Rate : 076 BPM Atrial Rate : 076 BPM P-R Int : 170 ms QRS Dur : 088 ms QT Int : 364 ms P-R-T Axes : -25 003 023 degrees QTc Int : 409 ms SINUS RHYTHM WITH OCCASIONAL PREMATURE VENTRICULAR COMPLEXES OTHERWISE NORMAL ECG WHEN COMPARED WITH ECG OF 21-OCT-2018 03:19, PREMATURE VENTRICULAR COMPLEXES ARE NOW PRESENT Confirmed by JAMISON OAKLEY, JERILYN ([id number]) on 10/09/2019 10:28:25 AM Referred By: Confirmed By:JERILYN SWIFT MD
== END 2019-10-09 03:03 | disposition home or self-care (01) ==
LOC: JER 20:16
PROC: 3E033GC Introduction of Other Therapeutic Substance into Peripheral Vein, Percutaneous Approach (ICD-10-PCS; principal; 2019-10-08)
PROC: 3E033NZ Introduction of Analgesics, Hypnotics, Sedatives into Peripheral Vein, Percutaneous Approach (ICD-10-PCS; 2019-10-08)
PROC: 3E033GC Introduction of Other Therapeutic Substance into Peripheral Vein, Percutaneous Approach (ICD-10-PCS; 2019-10-08)
PROC: 3E033GC Introduction of Other Therapeutic Substance into Peripheral Vein, Percutaneous Approach (ICD-10-PCS; 2019-10-08)
DX: K21.9 Gastro-esophageal reflux disease without esophagitis (principal); K27.9 Peptic ulcer, site unspecified, unspecified as acute or chronic, without hemorrhage or perforation; Z88.6 Allergy status to analgesic agent
CPT/HCPCS: 36415; 71250-TC; 74176-TC; 80053; 84484; 85025; 93005; 93010; 99282-25; J0131

== ENCOUNTER 2021-04-24 05:20 | Emergency (ER) | payer OTHER ==
[2021-04-24 05:47] VITALS: BP 114/79; PULSE 76; TEMP 98.2; BMI 31.6
[2021-04-24] MEDS ORDERED: MAG HYDROX/AL HYDROX/SIMETH 30 ML UNIT-DOSE CUP PO ONE (06:05)
[2021-04-24] MEDS ORDERED: FAMOTIDINE 20 MG/50 ML IVPB 50 ML IVPB ONE (06:05)
[2021-04-24] MEDS ORDERED: MAG HYDROX/AL HYDROX/SIMETH 30 ML UNIT-DOSE CUP ONE (06:16)
[2021-04-24] MEDS ORDERED: FAMOTIDINE 20 MG TABLET PO ONE (06:20)
[2021-04-24] MEDS ORDERED: FAMOTIDINE 20 MG TABLET ONE (06:21)
[2021-04-24 06:45] LABS: EOS % 2.9 % (0-4.5); HEMATOCRIT 44.2 % (35.4-49); HEMOGLOBIN 14.8 GM/dL (11.7-16.9); LYMPH % 34.8 % (8-40); MCH 28.1 pg (25.7-33.7); MCHC 33.5 g/dl (32.0-35.9); MEAN CELL VOLUME 83.9 fl (80-96); MEAN PLT VOLUME 7.4 fl (7.5-11.1); MONO % 9.2 % (3.8-10.2); NEUT % 52.1 % (42.8-82.8); PLATELET COUNT 372 10^3/uL (134-434); RBC 5.26 M/mm3 (4.00-5.60); RDW 13.6 % (11.9-15.9); WHITE BLOOD COUNT 8.5 K/mm3 (4.0-10.0)
[2021-04-24] MEDS ORDERED: SUCRALFATE 1 GM TABLET (FP) PO ONE (06:49)
[2021-04-24] MEDS ORDERED: SUCRALFATE 1 GM TABLET (FP) ONE (06:54)
[2021-04-24 07:04] LABS: CHLORIDE 106 mmol/L (98-107); SODIUM 140 mmol/L (136-145)
[2021-04-24 07:06] LABS: CALCIUM 9.2 mg/dL (8.5-10.1)
[2021-04-24 07:07] LABS: ALBUMIN 3.6 g/dl (3.4-5.0); ANION GAP 6 MMOL/L (8-16); BLOOD UREA NITROGEN 22.7 mg/dL (7-18); CO2 28 mmol/L (21-32); GLUCOSE,RANDOM 90 mg/dL (74-106); LIPASE 116 U/L (73-393)
[2021-04-24 07:10] LABS: CREATININE 1.1 mg/dL (0.55-1.3); SGOT/AST 19 U/L (15-37); SGPT/ALT 25 U/L (13-61)
[2021-04-24 07:11] LABS: BILIRUBIN,TOTAL 0.4 mg/dL (0.2-1)
[2021-04-24 07:12] LABS: ALK PHOS 96 U/L (45-117)
== END 2021-04-24 08:00 | disposition home or self-care (01) ==
LOC: JER 05:20
PROC: 3E033GC Introduction of Other Therapeutic Substance into Peripheral Vein, Percutaneous Approach (ICD-10-PCS; principal; 2021-04-24)
DX: R10.13 Epigastric pain (principal)
CPT/HCPCS: 36415; 80053; 82550; 83690; 84484; 85025; 99284-25

== ENCOUNTER 2024-05-28 21:30 | Emergency (ER) | payer SELFPAY ==
[2024-05-28 21:37] VITALS: RESP 16; BMI 32.4
[2024-05-28] MEDS ORDERED: ACETAMINOPHEN INJECTION 100 ML IVPB ONE (22:21)
[2024-05-28] MEDS: SODIUM CHLORIDE 0.9% 500 ML INFUS.BAG IV ONE (22:34)
[2024-05-28] MEDS: ACETAMINOPHEN 1000 MG/100 ML BAG IVPB ONE (22:34)
[2024-05-28 22:43] LABS: BASO % 0.6 % (0-2.0); EOS % 0.5 % (0-4.5); LYMPH % 12.9 % (8-40); MCH 27.8 pg (25.7-33.7); MCHC 33.4 g/dl (32.0-35.9); MEAN CELL VOLUME 83.1 fl (80-96); MEAN PLT VOLUME 7.2 fl (7.5-11.1); MONO % 8.6 % (3.8-10.2); NEUT % 77.4 % (42.8-82.8); PLATELET COUNT 434 10^3/uL (134-434); RBC 5.41 M/mm3 (4.00-5.60); RDW 13.8 % (11.9-15.9); WHITE BLOOD COUNT 14.2 K/mm3 (4.0-10.0)
[2024-05-28 23:11] LABS: CHLORIDE 103 mmol/L (98-107); SODIUM 134 mmol/L (136-145)
[2024-05-28 23:13] LABS: ALBUMIN 3.4 g/dl (3.4-5.0)
[2024-05-28 23:14] LABS: BLOOD UREA NITROGEN 11.6 mg/dL (7-18); CO2 25 mmol/L (21-32); GLUCOSE,RANDOM 95 mg/dL (74-106)
[2024-05-28 23:16] LABS: CREATININE 1.1 mg/dL (0.55-1.3); SGOT/AST 56 U/L (15-37); SGPT/ALT 22 U/L (13-61)
[2024-05-28 23:18] LABS: BILIRUBIN,TOTAL 1.3 mg/dL (0.2-1); TOT PROT 7.6 g/dl (6.4-8.2)
[2024-05-28 23:19] LABS: ALK PHOS 111 U/L (45-117)
[2024-05-28 23:20] LABS: ANION GAP 6 mmol/L (4-13); POTASSIUM 6.4 mmol/L (3.5-5.1)
[2024-05-29 01:45] VITALS: BP 98/67; PULSE 90; TEMP 98.8
[2024-05-29] MEDS ORDERED: AMOX TR/POT CLAV 875MG/125MG TABLETS (FP) ONE (01:57)
[2024-05-29] MEDS: AMOX TR/POT CLAV 875MG/125MG TABLETS (FP) PO ONE (02:02)
== END 2024-05-29 02:04 | disposition home or self-care (01) ==
LOC: JER 21:30
PROC: 3E033NZ Introduction of Analgesics, Hypnotics, Sedatives into Peripheral Vein, Percutaneous Approach (ICD-10-PCS; principal; 2024-05-28)
DX: R10.31 Right lower quadrant pain (principal); R10.32 Left lower quadrant pain; R19.7 Diarrhea, unspecified
CPT/HCPCS: 36415; 74177-TC; 80053; 83690; 85025; 99285-25; J0131; Q9967